=== PATIENT | male | born 1960 | race Caucasian/White ===

== ENCOUNTER 2016-07-22 19:29 | Inpatient (IN) | payer OTHER ==
[2016-07-22 19:45] VITALS: BMI 32.3
--- NOTE | 2016-07-22 21:20 | HP ---
[id number] 4d 4-Moderate,w/Arms Extend Anxiety: 4-Mod. Anxious/Guarded Agitation: 4-Moderately Restless Paroxysmal Sweats: 1-Minimal Palms Moist Orientation: 3-Disoriented Date>2 days Tacttile Disturbances: 0-None Auditory Disturbances: 0-None Visual Disturbances: 0-None Headache: 0-None Present CIWA-Ar Total Score: 17 Admission ROS BHS - HPI Chief Complaint: WITHDRAWAL SX Allergies/Adverse Reactions: Allergies Allergy/AdvReac Type Severity Reaction Status Date / Time No Known Allergies Allergy Verified 07/23/16 00:48 History of Present Illness: 56 YEARS OLD MALE WITH LONG HISTORY OF ALCOHOL DEPENDENCE, HAS DVT CHRONIC LEGS PAIN GERD AND DRY SKIN IS ADMITTED TO DETOX Exam Limitations: No Limitations - Ebola screening Have you traveled outside of the country in the last 21 days: No (N) Have you had contact with anyone from an Ebola affected area: No Have you been sick,other than usual withdrawal symptoms: No Do you have a fever: No - Review of Systems Constitutional: Chills, Changes in sleep, Weight Stable EENT: reports: Dental Problems (DENTURE) Respiratory: reports: Cough, SOB with Exertion Cardiac: reports: No Symptoms Reported GI: reports: Nausea, Poor Fluid Intake, Indigestion, Abdominal cramping : reports: No Symptoms Reported Musculoskeletal: reports: Joint Pain, Muscle Pain, Muscle Weakness (RIGHT LEG) Integumentary: reports: Change in Color (PSORIASIS) Neuro: reports: Tremors Endocrine: reports: No Symptoms Reported Hematology: reports: Blood Clots (LEGS RIGHT) Psychiatric: reports: Judgement Intact, Anxious Other Systems: Reviewed and Negative Patient History - Patient Medical History Hx Anemia: No Hx Asthma: No Hx Chronic Obstructive Pulmonary Disease (COPD): No Hx Cancer: No Hx Cardiac Disorders: No Hx Congestive Heart Failure: No Hx Hypertension: No Hx Hypercholesterolemia: No Hx Pacemaker: No HX Cerebrovascular Accident: No Hx Seizures: No Hx Dementia: No Hx Diabetes: No Hx Gastrointestinal Disorders: Yes Hx Liver Disease: No Hx Genitourinary Disorders: No Hx Sexually Transmitted Disorders: No Hx Renal Disease (ESRD): No Hx Thyroid Disease: No Hx Human Immunodeficiency Virus (HIV): No Hx Hepatitis C: No Hx Depression: No Hx Suicide Attempt: No Hx Bipolar Disorder: No Hx Schizophrenia: No - Patient Surgical History Past Surgical History: Yes Hx Neurologic Surgery: No Hx Cataract Extraction: No Hx Cardiac Surgery: No Hx Lung Surgery: No Hx Breast Surgery: No Hx Breast Biopsy: No Hx Abdominal Surgery: No Hx Appendectomy: No Hx Cholecystectomy: No Hx Genitourinary Surgery: No Hx Orthopedic Surgery: Yes (FX AGE 46) Other Surgical History: IVP FILTER / PILOCYST REMOVED 2005 Anesthesia Reaction: No - PPD History Previous Implant?: Yes Documented Results: Negative w/o proof Implanted On Prior R Admission?: No PPD to be Administered?: Yes - Smoking Cessation Smoking history: Former smoker Have you smoked in the past 12 months: No Aproximately how many cigarettes per day: 0 Cigars Per Day: 0 Hx Chewing Tobacco Use: No Initiated information on smoking cessation: No - Substance & Tx. History Hx Alcohol Use: Yes Hx Substance Use: No Substance Use Type: Alcohol Hx Substance Use Treatment: Yes - Substances Abused Alcohol Route: Oral Frequency: Daily Amount used: 3 PINTS VOLKA Age of first use: 7 Date of Last Use: 07/22/16 Family Disease History - Family Disease History Family Disease History: Heart Disease: Mother (), Other: Father (NO CONTACT ), Mother Admission Physical Exam S - Vital Signs Vital Signs: Vital Signs - 24 hr 07/22/16 19:42 Temperature 98.8 F Pulse Rate 129 H Respiratory 20 Rate Blood Pressure 144/94 - Physical General Appearance: Yes: Appropriately Dressed, Moderate Distress, Alcohol on Breath, Obese, Tremorous, Irritable, Sweating, Anxious HEENTM: Yes: Hearing grossly Normal, Normal ENT Inspection, Normocephalic, Normal Voice Respiratory: Yes: Chest Non-Tender, No Accessory Muscle Use, Crackles, Rhonchi, Wheezing Neck: Yes: Supple, Trachea in good position Breast: Yes: Breasts Symetrical Cardiology: Yes: Regular Rhythm, S1, S2, Tachycardia Abdominal: Yes: Non Tender, Soft Genitourinary: Yes: Within Normal Limits Back: Yes: Normal Inspection Musculoskeletal: Yes: full range of Motion, Gait Steady, Muscle weakness (RIGHT LEG) Extremities: Yes: Normal Range of Motion, Non-Tender, Tremors Neurological: Yes: Alert, Motor Strength 5/5, Normal Response, Depressed Affect Integumentary: Yes: Warm, Clammy Lymphatic: Yes: Within Normal Limits - Diagnostic (1) Alcohol dependence with uncomplicated withdrawal Current Visit: Yes Status: Acute (2) DVT (deep venous thrombosis) Current Visit: Yes Status: Acute Qualifiers: DVT location: lower extremity Affected thrombotic vein of extremity: popliteal Laterality: bilateral (3) GERD (gastroesophageal reflux disease) Current Visit: Yes Status: Acute Qualifiers: Esophagitis presence: without esophagitis Qualified Code(s): K21.9 - Gastro-esophageal reflux disease without esophagitis (4) Chronic pruritus Current Visit: Yes Status: Chronic Comment: claritine (5) Psoriasis Current Visit: Yes Status: Acute Comment: triamcinolone (6) Toenail fungus Current Visit: Yes Status: Acute Comment: clotrimazole (7) Hypertension Current Visit: Yes Status: Chronic Qualifiers: Hypertension type: essential hypertension Qualified Code(s): I10 - Essential (primary) hypertension Comment: clonidine prn Cleared for Admission S - Detox or Rehab [facility] Level of Care: Medically Managed Detox Regimen/Protocol: Librium S Breath Alcohol Content Breath Alcohol Content: 0.176 Urine Drug Screen - Results Drug Screen Negative: Yes
[2016-07-22] MEDS ORDERED: P-EPHED 60MG/TRIPROLIDI 2.5MG TABLET PO PRN (21:46)
[2016-07-22] MEDS ORDERED: LOPERAMIDE HCL 2 MG CAPSULE PO PRN (21:46)
[2016-07-22] MEDS ORDERED: guaiFENesin/D-METHORPHAN HB 10 ML UNIT-DOSE CUPS PO PRN (21:46)
[2016-07-22] MEDS ORDERED: MENTHOL/PHENOL 1 EACH UD MM PRN (21:46)
[2016-07-22] MEDS ORDERED: MAGNESIUM HYDROX 2400MG/30ML ORAL SUSPENSION 30 ML CUP PO PRN (21:46)
[2016-07-22] MEDS ORDERED: MAGNESIUM CITRATE 300 ML BOTTLE PO PRN (21:46)
[2016-07-22] MEDS ORDERED: diazePAM 5 MG TABLET PO ONE (21:51)
[2016-07-22] MEDS ORDERED: LORATADINE 10 MG TABLET PO SCH (22:00)
[2016-07-22] MEDS ORDERED: PANTOPRAZOLE 40 MG TABLET (FP) PO SCH (23:00)
[2016-07-23] MEDS: diazePAM 5 MG TABLET PO PRN ×5 (00:37→18:11)
[2016-07-23] MEDS: diphenhydrAMINE HCL 50 MG CAPSULE PO PRN (00:43)
[2016-07-23] MEDS: diazePAM 5 MG TABLET PO SCH ×4 (00:47→22:22)
[2016-07-23] MEDS: NAPROXEN 500 MG TABLET (FP) PO SCH ×3 (00:49→22:23)
[2016-07-23] MEDS: CLOTRIMAZOLE 1% CREAM 15 GM TUBE TP SCH ×3 (00:49→22:23)
[2016-07-23] MEDS: RIVAROXABAN 20 MG TABLET PO SCH ×2 (00:49→22:24)
[2016-07-23] MEDS: THIAMINE HCL 100 MG TABLET (FP) PO SCH ×2 (00:49→22:22)
[2016-07-23] MEDS: hydrOXYzine PAMOATE 50 MG CAPSULE (FP) PO PRN ×2 (03:09→10:17)
[2016-07-23] MEDS: MAG HYDROX/AL HYDROX/SIMETH 30 ML UNIT-DOSE CUP PO PRN ×2 (03:43→18:11)
[2016-07-23] MEDS: ACETAMINOPHEN 325 MG TABLET (FP) PO PRN (09:14)
--- NOTE | 2016-07-23 09:27 | PN ---
BHS CIWA - CIWA Score Nausea/Vomitin Muscle Tremors: 3 Anxiety: 3 Agitation: 2 Paroxysmal Sweats: 1-Minimal Palms Moist Orientation: 0-Oriented Tacttile Disturbances: 1-Very Mild Itch/Numbness Auditory Disturbances: 1-Very Mild Visual Disturbances: 2-Mild Sensitivity Headache: 2-Mild CIWA-Ar Total Score: 18 BHS Progress Note (SOAP) Subjective: ALERT,IRRITABLE,ANXIOUS,INTERRUPTED SLEEP,TREMOR,PAIN IN THE BODY Objective: 07/23/16 09:25 Vital Signs Temperature 97.5 F L 07/23/16 06:22 Pulse Rate 104 H 07/23/16 06:22 Respiratory Rate 20 07/23/16 06:22 Blood Pressure 146/91 07/23/16 06:22 O2 Sat by Pulse Oximetry (%) EKG SINUS TACHYCARDIA 114/MIN NO CHEST PAIN,NO SOB,NO DIZZINESS LABS PENDING Assessment: 07/23/16 09:26 WITHDRAWAL SYMPTOM Plan: CONTINUE DETOX
[2016-07-23] MEDS: HYDROCORTISONE 1% TOPICAL CREAM 30 GM TUBE TP SCH ×4 (10:17→22:22)
[2016-07-23] MEDS: cloNIDine HCL 0.1 MG TABLET PO PRN ×2 (10:17→22:22)
[2016-07-23] MEDS: PRENATAL VITAMINS W/ FOLIC ACID TABLET (FP) PO SCH (10:17)
[2016-07-23 11:19] LABS: MCH 33.5 pg (25.7-33.7); MCHC 34.1 g/dl (32.0-35.9); MEAN CELL VOLUME 98.1 fl (80-96); MEAN PLT VOLUME 9.1 fl (7.5-11.1); PLATELET COUNT 130 K/MM3 (134-434); RDW 14.7 % (11.9-15.9)
[2016-07-23 11:43] LABS: ALBUMIN 4.2 g/dl (3.4-5.0); ALK PHOS 102 U/L (45-117); ANION GAP 14 (8-16); CALCIUM 8.5 mg/dL (8.5-10.1); CO2 27 mmol/L (21-32); CREATININE 1.1 mg/dL (0.7-1.3); GLUCOSE,RANDOM 86 mg/dL (74-106); SGOT/AST 54 U/L (15-37); SGPT/ALT 33 U/L (12-78); TOT PROT 7.3 g/dl (6.4-8.2)
[2016-07-23 14:10] LABS: HIV 1 & 2 AB NEGATIVE; HIV 1 AGp24 NEGATIVE
--- NOTE | 2016-07-23 15:14 | CONSULT ---
[facility] Psychiatric Consult - Data Date of interview: 07/23/16 Admission source: [facility] Identifying data: First admission to [facility] for his 56 y/o male seeking detox treatment on for alcohol dependence.Patient is single without children,domiciled,unemployed and supported on Public Assistance. Substance Abuse History: - Smoking Cessation. Smoking history: Former smoker. Have you smoked in the past 12 months: Yes. Hx Chewing Tobacco Use: No. Initiated information on smoking cessation: No. - Substance & Tx. History. Hx Alcohol Use: Yes. Hx Substance Use: No. Substance Use Type: Alcohol. Hx Substance Use Treatment: Yes. - Substances Abused. Alcohol. Route: Oral. Frequency: Daily. Amount used: 3 PINTS VOLKA. Age of first use: 7. Date of Last Use: 07/22/16. Confirmed by patient in this interview. Medical History: Patient endorses good general health.History of IVP filter/ pilocyst removed in 2005,DVT and GERD. Psychiatric History: Patient denies. Physical/Sexual Abuse/Trauma History: Patient denies. Additional Comment: Drug Screen is negative. Mental Status Exam - Mental Status Exam Alert and Oriented to: Time, Place, Person Cognitive Function: Good Patient Appearance: Well Groomed Mood: Hopeful, Euthymic Affect: Appropriate, Normal Range Patient Behavior: Appropriate, Cooperative Speech Pattern: Clear, Appropriate Voice Loudness: Normal Thought Process: Goal Oriented Thought Disorder: Not Present Hallucinations: Denies Suicidal Ideation: Denies Insight/Judgement: Fair Sleep: Poorly, Difficulty falling asleep Appetite: Good Muscle strength/Tone: Normal Psychiatric Findings - Problem List ([place] 1, 2,3) (1) Alcohol dependence Current Visit: Yes Status: Acute (2) Insomnia Current Visit: Yes Status: Acute - Initial Treatment Plan Initial Treatment Plan: Psychoeducation.Detoxification.Seroquel 50 mg po hs ( patient's request).Made aware of the side effects/benefits of the drug.Observation.
[2016-07-23 17:44] LABS: URINE APPEARANCE CLEAR; URINE BLOOD NEGATIVE (NEGATIVE); URINE COLOR AMBER; URINE GLUCOSE (UA) NEGATIVE (NEGATIVE); URINE KETONE TRACE (NEGATIVE); URINE NITRITE NEGATIVE (NEGATIVE); URINE UROBILINOGEN NEGATIVE E.U./dl (0.2-1.0)
[2016-07-23 17:50] LABS: URINE LEUK ESTERASE 1+ (NEGATIVE); URINE PROTEIN 2+ (NEGATIVE)
[2016-07-23 18:09] LABS: URINE HYALINE CAST 9 /lpf; URINE MUCUS FEW; URINE RBC 4 /hpf (0-3); URINE WBC 9 /hpf (3-5)
[2016-07-23] MEDS: LORATADINE 10 MG TABLET PO SCH (22:22)
[2016-07-23] MEDS: QUEtiapine FUMARATE 50 MG TABLET PO SCH (22:22)
[2016-07-23] MEDS: OMEPRAZOLE PO SCH (22:23)
[2016-07-23] MEDS: XERALTO PO SCH (22:25)
[2016-07-24] MEDS: PRENATAL VITAMINS W/ FOLIC ACID TABLET (FP) PO SCH (10:41)
[2016-07-24] MEDS: NAPROXEN 500 MG TABLET (FP) PO SCH ×2 (10:42→17:50)
[2016-07-24] MEDS: HYDROCORTISONE 1% TOPICAL CREAM 30 GM TUBE TP SCH ×4 (10:42→22:55)
[2016-07-24] MEDS: diazePAM 5 MG TABLET PO SCH ×2 (10:42→22:21)
[2016-07-24] MEDS: CLOTRIMAZOLE 1% CREAM 15 GM TUBE TP SCH ×2 (10:43→22:55)
[2016-07-24] MEDS: cloNIDine HCL 0.1 MG TABLET PO PRN (10:44)
[2016-07-24] MEDS: hydrOXYzine PAMOATE 50 MG CAPSULE (FP) PO PRN ×2 (10:44→15:08)
--- NOTE | 2016-07-24 10:45 | PN ---
[facility] CIWA - CIWA Score Nausea/Vomitin Muscle Tremors: 3 Anxiety: 3 Agitation: 2 Paroxysmal Sweats: 1-Minimal Palms Moist Orientation: 0-Oriented Tacttile Disturbances: 1-Very Mild Itch/Numbness Auditory Disturbances: 1-Very Mild Visual Disturbances: 1-Very Mild Sensitivity Headache: 2-Mild CIWA-Ar Total Score: 17 BHS Progress Note (SOAP) Subjective: ALERT,IRRITABLE,ANXIOUS,INTERRUPTED SLEEP,TREMOR Objective: 07/24/16 10:43 Vital Signs Temperature 97.8 F 07/24/16 09:46 Pulse Rate 119 H 07/24/16 09:46 Respiratory Rate 18 07/24/16 09:46 Blood Pressure 142/88 07/24/16 09:46 O2 Sat by Pulse Oximetry (%) Laboratory Last Values WBC 4.0 K/mm3 (4.0-10.0) 07/23/16 08:00 RBC 3.95 M/mm3 (4.00-5.60) L 07/23/16 08:00 Hgb 13.2 GM/dL (11.7-16.9) 07/23/16 08:00 Hct 38.8 % (35.4-49) 07/23/16 08:00 MCV 98.1 fl (80-96) H 07/23/16 08:00 MCHC 34.1 g/dl (32.0-35.9) 07/23/16 08:00 RDW 14.7 % (11.9-15.9) 07/23/16 08:00 Plt Count 130 K/MM3 (134-434) L 07/23/16 08:00 MPV 9.1 fl (7.5-11.1) 07/23/16 08:00 Sodium 143 mmol/L (136-145) 07/23/16 08:00 Potassium 3.7 mmol/L (3.5-5.1) 07/23/16 08:00 Chloride 102 mmol/L (98-107) 07/23/16 08:00 Carbon Dioxide 27 mmol/L (21-32) 07/23/16 08:00 Anion Gap 14 (8-16) 07/23/16 08:00 BUN 17 mg/dL (7-18) 07/23/16 08:00 Creatinine 1.1 mg/dL (0.7-1.3) 07/23/16 08:00 Creat Clearance w eGFR > 60 (>60) 07/23/16 08:00 Random Glucose 86 mg/dL (74-106) 07/23/16 08:00 Calcium 8.5 mg/dL (8.5-10.1) 07/23/16 08:00 Total Bilirubin 1.0 mg/dL (0.2-1.0) 07/23/16 08:00 AST 54 U/L (15-37) H 07/23/16 08:00 ALT 33 U/L (12-78) 07/23/16 08:00 Alkaline Phosphatase 102 U/L (45-117) 07/23/16 08:00 Total Protein 7.3 g/dl (6.4-8.2) 07/23/16 08:00 Albumin 4.2 g/dl (3.4-5.0) 07/23/16 08:00 Urine Color Kayla 07/23/16 Unknown Urine Appearance Clear 07/23/16 Unknown Urine pH 5.0 (5.0-8.0) 07/23/16 Unknown Ur Specific [place] 1.034 (1.001-1.035) 07/23/16 Unknown Urine Protein 2+ (NEGATIVE) H 07/23/16 Unknown Urine Glucose (UA) Negative (NEGATIVE) 07/23/16 Unknown Urine Ketones Trace (NEGATIVE) H 07/23/16 Unknown Urine Blood Negative (NEGATIVE) 07/23/16 Unknown Urine Nitrite Negative (NEGATIVE) 07/23/16 Unknown Urine Bilirubin 2.0 (NEGATIVE) 07/23/16 Unknown Urine Urobilinogen Negative E.U./dl (0.2-1.0) 07/23/16 Unknown Ur Leukocyte Esterase 1+ (NEGATIVE) H 07/23/16 Unknown Urine RBC 4 /hpf (0-3) 07/23/16 Unknown Urine WBC 9 /hpf (3-5) 07/23/16 Unknown Ur Epithelial Cells Rare /hpf (FEW) 07/23/16 Unknown Hyaline Casts 9 /lpf 07/23/16 Unknown Urine Mucus Few 07/23/16 Unknown RPR Titer Nonreactive (NONREACTIVE) 07/23/16 08:00 HIV 1&2 Antibody Screen Negative 07/23/16 08:00 HIV P24 Antigen Negative 07/23/16 08:00 07/24/16 10:44 Assessment: 07/24/16 10:44 WITHDRAWAL SYMPTOM Plan: CONTINUE DETOX
[2016-07-24] MEDS: ACETAMINOPHEN 325 MG TABLET (FP) PO PRN (13:49)
[2016-07-24] MEDS: diazePAM 5 MG TABLET PO PRN ×2 (13:52→17:52)
[2016-07-24] MEDS ORDERED: CYCLOBENZAPRINE HCL 10 MG TABLET (FP) PO ONE (14:38)
[2016-07-24] MEDS ORDERED: CYCLOBENZAPRINE HCL 10 MG TABLET (FP) PO PRN (14:38)
[2016-07-24] MEDS ORDERED: NAPROXEN 500 MG TABLET (FP) PO SCH (18:00)
[2016-07-24] MEDS: OMEPRAZOLE PO SCH (22:19)
[2016-07-24] MEDS: XERALTO PO SCH (22:20)
[2016-07-24] MEDS: LORATADINE 10 MG TABLET PO SCH (22:20)
[2016-07-24] MEDS: THIAMINE HCL 100 MG TABLET (FP) PO SCH (22:21)
[2016-07-24] MEDS: QUEtiapine FUMARATE 50 MG TABLET PO SCH (22:21)
--- NOTE | 2016-07-24 22:42 | EKG ---
Test Reason : Blood Pressure : / mmHG Vent. Rate : 114 BPM Atrial Rate : 114 BPM P-R Int : 160 ms QRS Dur : 078 ms QT Int : 330 ms P-R-T Axes : 084 -08 032 degrees QTc Int : 454 ms POOR DATA QUALITY, INTERPRETATION MAY BE ADVERSELY AFFECTED LIKELY SINUS TACHYCARDIA NONSPECIFIC T WAVE ABNORMALITY NO PREVIOUS ECGS AVAILABLE Confirmed by MEHRDAD COLÓN MD ([id number]) on 07/24/2016 10:41:38 PM Referred By: Confirmed By:MEHRDAD COLÓN MD
[2016-07-24] MEDS: RIVAROXABAN 20 MG TABLET PO SCH (22:55)
[2016-07-25] MEDS: diphenhydrAMINE HCL 50 MG CAPSULE PO PRN ×2 (01:25→23:14)
[2016-07-25] MEDS: NAPROXEN 500 MG TABLET (FP) PO SCH (10:00)
--- NOTE | 2016-07-25 10:24 | PN ---
BHS Progress Note (SOAP) Subjective: body aches shakes Objective: 07/25/16 10:22 Vital Signs Temperature 97.5 F L 07/25/16 10:10 Pulse Rate 102 H 07/25/16 10:10 Respiratory Rate 18 07/25/16 10:10 Blood Pressure 142/99 07/25/16 10:10 O2 Sat by Pulse Oximetry (%) awake/alert ambulating no acute distress Assessment: 07/25/16 10:23 withdrawal sx Plan: continue detox increase fluids clonidine 0.1mg bid d/c in am
[2016-07-25] MEDS: PRENATAL VITAMINS W/ FOLIC ACID TABLET (FP) PO SCH (10:28)
[2016-07-25] MEDS: diazePAM 5 MG TABLET PO SCH ×2 (10:29→23:01)
[2016-07-25] MEDS: HYDROCORTISONE 1% TOPICAL CREAM 30 GM TUBE TP SCH ×5 (10:29→23:06)
[2016-07-25] MEDS: CLOTRIMAZOLE 1% CREAM 15 GM TUBE TP SCH ×3 (10:30→23:06)
[2016-07-25] MEDS: cloNIDine HCL 0.1 MG TABLET PO SCH ×2 (10:48→22:56)
[2016-07-25] MEDS: IBUPROFEN 400 MG TABLET (FP) PO PRN ×2 (11:22→19:34)
[2016-07-25] MEDS: diazePAM 5 MG TABLET PO PRN ×2 (14:27→19:32)
[2016-07-25] MEDS: hydrOXYzine PAMOATE 50 MG CAPSULE (FP) PO PRN (15:38)
[2016-07-25] MEDS ORDERED: XERALTO PO SCH (17:00)
[2016-07-25] MEDS: THIAMINE HCL 100 MG TABLET (FP) PO SCH (22:56)
[2016-07-25] MEDS: LORATADINE 10 MG TABLET PO SCH (22:56)
[2016-07-25] MEDS: QUEtiapine FUMARATE 50 MG TABLET PO SCH (22:56)
[2016-07-25] MEDS: OMEPRAZOLE PO SCH (22:59)
[2016-07-26] MEDS: hydrOXYzine PAMOATE 50 MG CAPSULE (FP) PO PRN (06:11)
[2016-07-26] MEDS: IBUPROFEN 400 MG TABLET (FP) PO PRN (06:12)
--- NOTE | 2016-07-26 08:40 | DS ---
[facility] Detox Discharge Summary Admission Date: 07/22/16 Discharge Date: 07/26/16 - History Present History: Alcohol Dependence - Physical Exam Results Vital Signs: Vital Signs Temperature 98.4 F 07/26/16 06:40 Pulse Rate 88 07/26/16 06:40 Respiratory Rate 18 07/26/16 06:40 Blood Pressure 141/84 07/26/16 06:40 O2 Sat by Pulse Oximetry (%) - Treatment Hospital Course: Detox Protocol Followed, Detoxed Safely, Responded well, Discharged Condition Good, Rehab Referral Accepted - Medication Discharge Medications: Ambulatory Orders Loratadine [Claritin -] 10 mg PO HS 07/22/16 Naproxen [Naprosyn -] 500 mg PO BID 07/22/16 Omeprazole 40 mg PO HS 07/22/16 Rivaroxaban [Xarelto -] 20 mg PO HS 07/22/16 Quetiapine Fumarate [Seroquel -] 50 mg PO HS #30 tablet 07/23/16 - Diagnosis (1) Alcohol dependence with uncomplicated withdrawal Current Visit: Yes Status: Chronic (2) DVT (deep venous thrombosis) Current Visit: Yes Status: Chronic Qualifiers: DVT location: lower extremity Affected thrombotic vein of extremity: popliteal Laterality: bilateral (3) GERD (gastroesophageal reflux disease) Current Visit: Yes Status: Chronic Qualifiers: Esophagitis presence: without esophagitis Qualified Code(s): K21.9 - Gastro-esophageal reflux disease without esophagitis (4) Insomnia Current Visit: Yes Status: Acute (5) Psoriasis Current Visit: Yes Status: Acute (6) Toenail fungus Current Visit: Yes Status: Acute (7) Chronic pruritus Current Visit: Yes Status: Chronic (8) Hypertension Current Visit: Yes Status: Chronic Qualifiers: Hypertension type: essential hypertension Qualified Code(s): I10 - Essential (primary) hypertension - AMA Did Patient Leave Against Medical Advice: No
[2016-07-26] MEDS: cloNIDine HCL 0.1 MG TABLET PO SCH (09:41)
[2016-07-26] MEDS: PRENATAL VITAMINS W/ FOLIC ACID TABLET (FP) PO SCH (09:41)
[2016-07-26] MEDS: CLOTRIMAZOLE 1% CREAM 15 GM TUBE TP SCH (09:42)
[2016-07-26] MEDS: HYDROCORTISONE 1% TOPICAL CREAM 30 GM TUBE TP SCH (09:42)
[2016-07-26 09:56] VITALS: BP 143/92; PULSE 111; TEMP 97.2
[2016-07-26] MEDS ORDERED: diazePAM 5 MG TABLET PO SCH (10:00)
== END 2016-07-26 09:50 | disposition home or self-care (01) | DRG 775 ==
LOC: YASAS 19:29 → Y6N 22:59
PROVIDERS: ADMIT Internal Medicine; ATTEND Internal Medicine
PROC: HZ2ZZZZ Detoxification Services for Substance Abuse Treatment (ICD-10-PCS; principal; 2016-07-26)
DX: F10.230 Alcohol dependence with withdrawal, uncomplicated (principal); G47.00 Insomnia, unspecified; I10 Essential (primary) hypertension; I82.433 Acute embolism and thrombosis of popliteal vein, bilateral; Z79.01 Long term (current) use of anticoagulants; B35.1 Tinea unguium; K21.9 Gastro-esophageal reflux disease without esophagitis; L40.9 Psoriasis, unspecified
CPT/HCPCS: 36415; 71020-TC; 80053; 81003; 81015; 85027; 86593; 87389; 93005; 93010

== ENCOUNTER 2018-12-15 08:34 | Inpatient (IN) | payer OTHER ==
[2018-12-15 09:18] VITALS: BMI 24.5
--- NOTE | 2018-12-15 09:49 | HP ---
"CIWA Score Nausea/Vomitin Muscle Tremors: 4-Moderate,w/Arms Extend Anxiety: 4-Mod. Anxious/Guarded Agitation: 1-Slight > Activity Paroxysmal Sweats: 1-Minimal Palms Moist Orientation: 0-Oriented Tacttile Disturbances: 0-None Auditory Disturbances: 0-None Visual Disturbances: 0-None Headache: 1-Very Mild CIWA-Ar Total Score: 14 - Admission Criteria [facility] Guidelines: Admission for Medically Managed Detox: Requires at least one of the followin. CIWA greater than 12 2. Seizures within the past 24 hours 3. Delirium tremens within the past 24 hours 4. Hallucinations within the past 24 hours 5. Acute intervention needed for co occurring medical disorder 6. Acute intervention needed for co occurring psychiatric disorder 7. Severe withdrawal that cannot be handled at a lower level of care (continued vomiting, continued diarrhea, abnormal vital signs) requiring intravenous medication and/or fluids 8. Patient presents the following: CIWA greater than 12 Admission Criteria Met: Admission criteria met Admission ROS S - [facility] Chief Complaint: I was doing good but then I met the wrong person and started drinking again - I can't stop - I don't want to lose my apartment. Allergies/Adverse Reactions: Allergies Allergy/AdvReac Type Severity Reaction Status Date / Time No Known Allergies Allergy Verified 12/15/18 09:09 History of Present Illness: 58 yo gentleman here for detox from alcohol, also uses heroin though none x 3 days, urine tox negative for opiates - he is aware we will detox him only for alcohol. He is also on pain management but missed his appointment on 12/12/18 - states he supplements the percocet with heroin for his chronic pain. He states he needs a hip replacement. Patient came from [place] [facility] - he went there for chest pressure which they said was negative for [place] and recommended detox. Patient lives in his own apartment, on disability. Denies any seizures or overdose but does have black outs. Last time here for detox was in 2017 and states he did well until a few months ago when he relapsed. [facility] Search Terms: jeremy hennessy, 1960 Search Date: 12/15/2018 09:53:31 AM The Drug Utilization Report below displays all of the controlled substance prescriptions, if any, that your patient has filled in the last twelve months. The information displayed on this report is compiled from pharmacy submissions to the Department, and accurately reflects the information as submitted by the pharmacies. This report was requested by: Nikole Montemayor | Reference #: [id number] Others' Prescriptions Patient Name: Jeremy Hennessy Date: 1960 Address: [address] [place] [address] Sex: Male Rx Written Rx Dispensed Drug Quantity Days Supply Prescriber Name 11/12/2018 11/12/2018 oxycodone-acetaminophen 5-325 mg tab 60 30 Tuluca, Trey 10/12/2018 10/12/2018 endocet 5-325 tablet 60 30 Tuluca, Trey 09/11/2018 09/11/2018 endocet 5-325 tablet 60 30 Tuluca, Trey 08/06/2018 08/06/2018 endocet 5-325 tablet 60 30 Tuluca, Trey 05/24/2018 07/09/2018 tramadol hcl 50 mg tablet 90 30 Tuluca, Trey 07/06/2018 07/09/2018 endocet 5-325 tablet 60 30 Tuluca, Trey 06/01/2018 06/09/2018 endocet 5-325 tablet 60 30 Tuluca, Trey 06/01/2018 06/01/2018 endocet 5-325 tablet 14 7 Tuluca, Trey 05/24/2018 05/25/2018 tramadol hcl 50 mg tablet 21 7 Wayne Vuongiano Patient Name: Jeremy Hennessy Date: 1960 Address: [address] [place] [id number] Sex: Female Rx Written Rx Dispensed Drug Quantity Days Supply Prescriber Name 12/27/2017 12/27/2017 tramadol hcl 50 mg tablet 90 30 Wayne Vuongiano Exam Limitations: No Limitations - Ebola screening Have you traveled outside of the country in the last 21 days: No Have you had contact with anyone from an Ebola affected area: No - Review of Systems Constitutional: Loss of Appetite, Malaise, Changes in sleep, Weakness EENT: reports: Blurred Vision Respiratory: reports: No Symptoms reported Cardiac: reports: No Symptoms Reported GI: reports: Nausea, Poor Appetite, Indigestion, Abdominal cramping : reports: Frequency Musculoskeletal: reports: Back Pain, Joint Pain, Muscle Pain Integumentary: reports: Dryness Neuro: reports: Headache, Tremors, Weakness Endocrine: reports: No Symptoms Reported Hematology: reports: No Symptoms Reported Psychiatric: reports: Judgement Intact, Mood/Affect Appropiate, Orientated x3, Anxious Other Systems: Reviewed and Negative Patient History - Patient Medical History Hx Anemia: No Hx Asthma: No Hx Chronic Obstructive Pulmonary Disease (COPD): No Hx Cancer: No Hx Cardiac Disorders: No Hx Congestive Heart Failure: No Hx Hypertension: Yes Hx Hypercholesterolemia: No Hx Pacemaker: No HX Cerebrovascular Accident: No Hx Seizures: No Hx Dementia: No Hx Diabetes: No Hx Gastrointestinal Disorders: Yes (GERD) Hx Liver Disease: No Hx Genitourinary Disorders: No Hx Sexually Transmitted Disorders: No Hx Renal Disease (ESRD): Yes (mild renal insuffficiency) Hx Thyroid Disease: No Hx Human Immunodeficiency Virus (HIV): No Hx Hepatitis C: No Hx Depression: No Hx Suicide Attempt: No (denies) Hx Bipolar Disorder: No Hx Schizophrenia: No Other Medical History: back and hip pain - osteoarthritis - Patient Surgical History Past Surgical History: Yes Hx Neurologic Surgery: No Hx Cataract Extraction: No Hx Cardiac Surgery: No Hx Lung Surgery: No Hx Breast Surgery: No Hx Breast Biopsy: No Hx Abdominal Surgery: No Hx Appendectomy: No Hx Cholecystectomy: No Hx Genitourinary Surgery: No Hx Orthopedic Surgery: Yes (shoulder rotator cuff repair AGE 46) Other Surgical History: IVP FILTER / PILOCYST REMOVED 2005 Anesthesia Reaction: No - PPD History Previous Implant?: Yes Documented Results: Negative w/o proof Implanted On Prior [facility] Admission?: Yes Date: 07/24/16 PPD to be Administered?: No - Reproductive History Patient is a Female of Child Bearing Age (11 -55 yrs old): No - Smoking Cessation Smoking history: Former smoker Have you smoked in the past 12 months: No Aproximately how many cigarettes per day: 0 Cigars Per Day: 0 Hx Chewing Tobacco Use: No Initiated information on smoking cessation: No - Substance & Tx. History Hx Alcohol Use: Yes Substance Use Type: Alcohol, Heroin Hx Substance Use Treatment: Yes (detox, rehab) - Substances abused Alcohol Substance route: Oral Frequency: Daily Amount used: 6 PINTS OF VODKA Age of first use: 16 Date of last use: 12/14/18 Heroin Substance route: Inhalation Frequency: 3-6 times per week Amount used: 2 BAGS (it's off an on, not everyday) Age of first use: 16 (2-3 times per week) Date of last use: 12/12/18 (urine tox negative for opiates) Family Disease History - Family Disease History Family Disease History: Heart Disease: Mother (), Other: Father (NO CONTACT ), Mother Admission Physical Exam [facility] - Vital Signs Vital Signs: Vital Signs - 24 hr 12/15/18 09:02 Temperature 97.6 F Pulse Rate 92 H Respiratory 18 Rate Blood Pressure 155/104 H - Physical General Appearance: Yes: Nourished, Appropriately Dressed, Moderate Distress, Tremorous, Anxious HEENTM: Yes: Hearing grossly Normal, Normal ENT Inspection, Normocephalic, Normal Voice Respiratory: Yes: Normal Breath Sounds, No Respiratory Distress Neck: Yes: Within Normal Limits Breast: Yes: Breast Exam Deferred Cardiology: Yes: Regular Rhythm, Regular Rate Abdominal: Yes: Flat, Soft Genitourinary: Yes: Frequency Back: Yes: Decreased Range of Motion, Other (mild kyphosis) Musculoskeletal: Yes: Back pain, Joint Stiffness, Muscle Pain, Other (uses cane to ambulate) Extremities: Yes: Tremors Neurological: Yes: Fully Oriented, Alert, Normal Mood/Affect, Normal Response Integumentary: Yes: Normal Color, Dry, Warm Lymphatic: Yes: Within Normal Limits - Diagnostic (1) Alcohol dependence with uncomplicated withdrawal Current Visit: Yes Status: Chronic (2) Opiate abuse, episodic Current Visit: Yes Status: Suspected (3) Hypertension Current Visit: Yes Status: Chronic Qualifiers: Hypertension type: essential hypertension Qualified Code(s): I10 - Essential (primary) hypertension (4) GERD (gastroesophageal reflux disease) Current Visit: Yes Status: Chronic Qualifiers: Esophagitis presence: without esophagitis Qualified Code(s): K21.9 - Gastro -esophageal reflux disease without esophagitis (5) Thrombocytopenia Current Visit: Yes Status: Chronic (6) Hip pain, chronic Current Visit: Yes Status: Chronic Qualifiers: Laterality: bilateral Qualified Code(s): M25.551 - Pain in right hip; M25.552 - Pain in left hip; G89.29 - Other chronic pain (7) Chronic back pain Current Visit: Yes Status: Chronic Qualifiers: Back pain location: low back pain Back pain laterality: bilateral Sciatica presence: without sciatica Qualified Code(s): M54.5 - Low back pain; G89.29 - Other chronic pain Comment: needs cane (8) History of DVT (deep vein thrombosis) Current Visit: Yes Status: Chronic Cleared for Admission S - Detox or Rehab [facility] Level of Care: Medically Managed Detox Regimen/Protocol: Librium Breathalyzer - Breathalyzer Breathalyzer: 0 Urine Drug Screen - Test Device Lot number: [id number] Expiration date: 09/19/19 - Control Is test valid?: Yes - Results Drug screen NEGATIVE: Yes Inpatient Rehab Admission - Rehab Decision to Admit Inpatient rehab admission?: No"
[2018-12-15] MEDS ORDERED: ONDANSETRON *ODT* 4 MG TABLET SL PRN (10:11)
[2018-12-15] MEDS ORDERED: MAGNESIUM HYDROX 2400MG/30ML ORAL SUSPENSION 30 ML CUP PO PRN (10:11)
[2018-12-15] MEDS ORDERED: chlordiazePOXIDE HCL 25 MG CAPSULE PO ONE (10:11)
[2018-12-15] MEDS ORDERED: MAG HYDROX/AL HYDROX/SIMETH 30 ML UNIT-DOSE CUP PO PRN (10:11)
[2018-12-15] MEDS ORDERED: MAGNESIUM CITRATE 300 ML BOTTLE PO PRN (10:11)
[2018-12-15] MEDS: LIDOCAINE 5% TOPICAL PATCH TP SCH (11:48)
[2018-12-15] MEDS: chlordiazePOXIDE HCL 25 MG CAPSULE PO SCH ×3 (11:48→22:27)
[2018-12-15] MEDS: APIXABAN 2.5 MG TABLET PO SCH ×2 (12:00→22:27)
[2018-12-15] MEDS: PANTOPRAZOLE 40 MG TABLET (FP) PO SCH (12:03)
[2018-12-15] MEDS: NIFEdipine E.R. 30 MG TABLET (FP) PO SCH (12:03)
[2018-12-15] MEDS: METHOCARBAMOL 500 MG TABLET PO PRN (13:07)
[2018-12-15] MEDS: BISMUTH SUBSALICYLATE 524 MG/30 ML UD PO PRN (14:41)
[2018-12-15] MEDS: ACETAMINOPHEN 325 MG TABLET (FP) PO PRN (17:46)
[2018-12-15 17:52] LABS: EPI CELLS 3.2 /HPF (0-5/HPF); HYALINE CASTS 1 /lpf (0-8); PH,URINE 5.5 (5.0-8.0); URINE APPEARANCE TURBID; URINE BACTERIA 192.7 /hpf (NEGATIVE); URINE BILIRUBIN 1+ (NEGATIVE); URINE COLOR DK YELLOW; URINE GLUCOSE (UA) NEGATIVE (NEGATIVE); URINE KETONE TRACE (NEGATIVE); URINE LEUK ESTERASE NEGATIVE (NEGATIVE); URINE NITRITE NEGATIVE (NEGATIVE); URINE PROTEIN 1+ (NEGATIVE); URINE RBC 2 /hpf (0-4); URINE WBC 5 /hpf (0-5)
[2018-12-15] MEDS: hydrOXYzine PAMOATE 25 MG CAPSULE (FP) PO PRN (20:02)
[2018-12-15] MEDS ORDERED: QUEtiapine FUMARATE 50 MG TABLET PO PRN (22:00)
[2018-12-15] MEDS: MELATONIN 5 MG TABLETS PO PRN (22:27)
[2018-12-15] MEDS: THIAMINE HCL 100 MG TABLET (FP) PO SCH (22:27)
[2018-12-15] MEDS: LIDOCAINE PATCH REMOVAL MC SCH (22:27)
[2018-12-16] MEDS: chlordiazePOXIDE HCL 25 MG CAPSULE PO SCH ×4 (06:22→22:38)
[2018-12-16] MEDS: ACETAMINOPHEN 325 MG TABLET (FP) PO PRN ×2 (06:23→17:20)
[2018-12-16 09:39] LABS: ALBUMIN 3.1 g/dl (3.4-5.0); BILIRUBIN,TOTAL 0.9 mg/dL (0.2-1); BLOOD UREA NITROGEN 15.5 mg/dL (7-18); CALCIUM 8.8 mg/dL (8.5-10.1); CREATININE 1.4 mg/dL (0.55-1.3); POTASSIUM 3.7 mmol/L (3.5-5.1); TOT PROT 6.4 g/dl (6.4-8.2)
[2018-12-16 09:52] LABS: HEMATOCRIT 36.5 % (35.4-49); HEMOGLOBIN 12.5 GM/dL (11.7-16.9); MCH 34.6 pg (25.7-33.7); MCHC 34.3 g/dl (32.0-35.9); MEAN CELL VOLUME 100.8 fl (80-96); MEAN PLT VOLUME 9.7 fl (7.5-11.1); PLATELET COUNT 94 K/MM3 (134-434); RBC 3.63 M/mm3 (4.00-5.60); WHITE BLOOD COUNT 2.4 K/mm3 (4.0-10.0)
[2018-12-16] MEDS: BISMUTH SUBSALICYLATE 524 MG/30 ML UD PO PRN (10:05)
[2018-12-16] MEDS: NIFEdipine E.R. 30 MG TABLET (FP) PO SCH (10:27)
[2018-12-16] MEDS: LIDOCAINE 5% TOPICAL PATCH TP SCH (10:27)
[2018-12-16] MEDS: APIXABAN 2.5 MG TABLET PO SCH ×2 (10:27→22:37)
[2018-12-16] MEDS: PANTOPRAZOLE 40 MG TABLET (FP) PO SCH (10:27)
[2018-12-16] MEDS: PRENATAL VITAMINS W/ FOLIC ACID TABLET (FP) PO SCH (10:28)
[2018-12-16] MEDS: chlordiazePOXIDE HCL 25 MG CAPSULE PO PRN (12:46)
[2018-12-16] MEDS: hydrOXYzine PAMOATE 25 MG CAPSULE (FP) PO PRN (14:24)
--- NOTE | 2018-12-16 14:45 | PN ---
[facility] CIWA - CIWA Score Nausea/Vomitin-Mild Nausea/No Vomiting Muscle Tremors: 3 Anxiety: 3 Agitation: 3 Paroxysmal Sweats: 3 Orientation: 0-Oriented Tacttile Disturbances: 0-None Auditory Disturbances: 0-None Visual Disturbances: 0-None Headache: 0-None Present CIWA-Ar Total Score: 13 S Progress Note (SOAP) Subjective: Tremor, sweating, chills, nausea, diarrhea, feels weak Objective: 12/16/18 14:41 Last Vital Signs Temp Pulse Resp BP Pulse Ox 97.7 F 99 H 18 118/79 12/16/18 13:35 12/16/18 13:35 12/16/18 13:35 12/16/18 13:35 Laboratory Tests 12/15/18 12/16/18 12/16/18 14:50 08:00 08:00 WBC 2.4 L RBC 3.63 L Hgb 12.5 Hct 36.5 MCV 100.8 H MCH 34.6 H MCHC 34.3 RDW 18.0 H Plt Count 94 L D MPV 9.7 Platelet Comment No clumping noted Sodium 143 Potassium 3.7 Chloride 106 Carbon Dioxide 30 Anion Gap 6 L BUN 15.5 Creatinine 1.4 H Est GFR (CKD-EPI)AfAm 62.84 Est GFR (CKD-EPI)NonAf 54.22 Random Glucose 114 H Calcium 8.8 Total Bilirubin 0.9 AST 34 ALT 40 Alkaline Phosphatase 142 H Total Protein 6.4 Albumin 3.1 L Urine Color Dk yellow Urine Appearance Turbid Urine pH 5.5 Ur Specific [place] 1.027 Urine Protein 1+ H Urine Glucose (UA) Negative Urine Ketones Trace H Urine Blood Negative Urine Nitrite Negative Urine Bilirubin 1+ H Urine Urobilinogen 1.0 Ur Leukocyte Esterase Negative Urine WBC (Auto) 5 Urine RBC (Auto) 2 Urine Casts (Auto) 1 U Epithel Cells (Auto) 3.2 Urine Bacteria (Auto) 192.7 RPR Titer 12/16/18 08:00 WBC RBC Hgb Hct MCV MCH MCHC RDW Plt Count MPV Platelet Comment Sodium Potassium Chloride Carbon Dioxide Anion Gap BUN Creatinine Est GFR (CKD-EPI)AfAm Est GFR (CKD-EPI)NonAf Random Glucose Calcium Total Bilirubin AST ALT Alkaline Phosphatase Total Protein Albumin Urine Color Urine Appearance Urine pH Ur Specific [place] Urine Protein Urine Glucose (UA) Urine Ketones Urine Blood Urine Nitrite Urine Bilirubin Urine Urobilinogen Ur Leukocyte Esterase Urine WBC (Auto) Urine RBC (Auto) Urine Casts (Auto) U Epithel Cells (Auto) Urine Bacteria (Auto) RPR Titer Nonreactive Labs reviewed: wbc 2.4, plt 94, creat 1.4, abnl UA Assessment: 12/16/18 14:44 Withdrawal sxs Noted with leukopenia, thrombocytopenia, prerenal azotemia and abnormal UA Plan: Continue detox Leukopenia: encourage good hand washing with soap and water before meals and after using bathroom Thrombocytopenia: most likely r/t alcoholism Prerenal azotemia; mild renal insufficiency as per chart: encourage PO water hydration, repeat BMP Abnormal UA: repeat UA
[2018-12-16] MEDS: MENTHOL/PHENOL 1 EACH UD MM PRN ×2 (17:21→22:38)
--- NOTE | 2018-12-16 21:02 | EKG ---
Test Reason : Blood Pressure : / mmHG Vent. Rate : 080 BPM Atrial Rate : 080 BPM P-R Int : 164 ms QRS Dur : 088 ms QT Int : 376 ms P-R-T Axes : 048 -03 033 degrees QTc Int : 433 ms NORMAL SINUS RHYTHM NORMAL ECG WHEN COMPARED WITH ECG OF 23-JUL-2016 00:49, NO SIGNIFICANT CHANGE WAS FOUND Confirmed by OK CURTIS MD ([id number]) on 12/16/2018 9:01:28 PM Referred By: Confirmed By:OK CURTIS MD
[2018-12-16] MEDS: THIAMINE HCL 100 MG TABLET (FP) PO SCH (22:37)
[2018-12-16] MEDS: LIDOCAINE PATCH REMOVAL MC SCH (22:38)
[2018-12-16] MEDS: METHOCARBAMOL 500 MG TABLET PO PRN (22:39)
[2018-12-16] MEDS: MELATONIN 5 MG TABLETS PO PRN (22:45)
[2018-12-17] MEDS: chlordiazePOXIDE HCL 25 MG CAPSULE PO PRN (05:35)
[2018-12-17] MEDS: ACETAMINOPHEN 325 MG TABLET (FP) PO PRN ×2 (05:36→16:26)
[2018-12-17] MEDS: chlordiazePOXIDE HCL 25 MG CAPSULE PO SCH ×4 (06:26→22:38)
[2018-12-17] MEDS: LIDOCAINE 5% TOPICAL PATCH TP SCH (10:48)
[2018-12-17] MEDS: PANTOPRAZOLE 40 MG TABLET (FP) PO SCH (10:49)
[2018-12-17] MEDS: PRENATAL VITAMINS W/ FOLIC ACID TABLET (FP) PO SCH (10:49)
[2018-12-17] MEDS: APIXABAN 2.5 MG TABLET PO SCH ×2 (10:49→22:37)
[2018-12-17] MEDS: NIFEdipine E.R. 30 MG TABLET (FP) PO SCH (10:49)
[2018-12-17 13:48] LABS: URINE APPEARANCE CLEAR; URINE BILIRUBIN NEGATIVE (NEGATIVE); URINE COLOR YELLOW; URINE GLUCOSE (UA) NEGATIVE (NEGATIVE); URINE KETONE NEGATIVE (NEGATIVE); URINE LEUK ESTERASE NEGATIVE (NEGATIVE); URINE NITRITE NEGATIVE (NEGATIVE); URINE PROTEIN NEGATIVE (NEGATIVE); URINE UROBILINOGEN 0.2 mg/dL (0.2-1.0)
--- NOTE | 2018-12-17 14:05 | PN ---
S CIWA - CIWA Score Nausea/Vomitin Muscle Tremors: 3 Anxiety: 3 Agitation: 2 Paroxysmal Sweats: No Perspiration Orientation: 2-Disoriented Date<2 days Tacttile Disturbances: 1-Very Mild Itch/Numbness Auditory Disturbances: 0-None Visual Disturbances: 1-Very Mild Sensitivity Headache: 0-None Present CIWA-Ar Total Score: 15 [facility] Progress Note (SOAP) Subjective: Tremors, Nausea, Anxious, Stomach Cramping, Diarrhea. Objective: PATIENT A & O X 2 (UNCERTAIN ABOUT CURRENT DAY / DATE). PATIENT OBSERVED AMBULATING ON UNIT UNASSISTED. IN NO ACUTE DISTRESS. 12/17/18 14:01 Vital Signs Temperature 98.4 F 12/17/18 13:24 Pulse Rate 103 H 12/17/18 13:24 Respiratory Rate 16 12/17/18 13:24 Blood Pressure 112/72 12/17/18 13:24 O2 Sat by Pulse Oximetry (%) Laboratory Tests 12/15/18 12/16/18 12/16/18 14:50 08:00 08:00 WBC 2.4 L RBC 3.63 L Hgb 12.5 Hct 36.5 MCV 100.8 H MCH 34.6 H MCHC 34.3 RDW 18.0 H Plt Count 94 L D MPV 9.7 Platelet Comment No clumping noted Sodium 143 Potassium 3.7 Chloride 106 Carbon Dioxide 30 Anion Gap 6 L BUN 15.5 Creatinine 1.4 H Est GFR (CKD-EPI)AfAm 62.84 Est GFR (CKD-EPI)NonAf 54.22 Random Glucose 114 H Calcium 8.8 Total Bilirubin 0.9 AST 34 ALT 40 Alkaline Phosphatase 142 H Total Protein 6.4 Albumin 3.1 L Urine Color Dk yellow Urine Appearance Turbid Urine pH 5.5 Ur Specific [place] 1.027 Urine Protein 1+ H Urine Glucose (UA) Negative Urine Ketones Trace H Urine Blood Negative Urine Nitrite Negative Urine Bilirubin 1+ H Urine Urobilinogen 1.0 Ur Leukocyte Esterase Negative Urine WBC (Auto) 5 Urine RBC (Auto) 2 Urine Casts (Auto) 1 U Epithel Cells (Auto) 3.2 Urine Bacteria (Auto) 192.7 RPR Titer 12/16/18 12/17/18 08:00 09:40 WBC RBC Hgb Hct MCV MCH MCHC RDW Plt Count MPV Platelet Comment Sodium Potassium Chloride Carbon Dioxide Anion Gap BUN Creatinine Est GFR (CKD-EPI)AfAm Est GFR (CKD-EPI)NonAf Random Glucose Calcium Total Bilirubin AST ALT Alkaline Phosphatase Total Protein Albumin Urine Color Yellow Urine Appearance Clear Urine pH 7.0 D Ur Specific [place] 1.007 L Urine Protein Negative Urine Glucose (UA) Negative Urine Ketones Negative Urine Blood Negative Urine Nitrite Negative Urine Bilirubin Negative Urine Urobilinogen 0.2 Ur Leukocyte Esterase Negative Urine WBC (Auto) Urine RBC (Auto) Urine Casts (Auto) U Epithel Cells (Auto) Urine Bacteria (Auto) RPR Titer Nonreactive LABS NOTED. PATIENT REPORTS "BURNING SENSATION IN URINE X LAST SEVERAL DAYS. RESULTS OF REPEAT UA NOTED. RESULTS OF QFT /TB TEST PENDING. RESULTS OF BASIC METABOLIC PANEL PENDING. 12/17/18 14:02 Assessment: 12/17/18 14:04 WITHDRAWAL SYMPTOMS. AZOTEMIA. ELEVATED ALKALINE PHOSPHATASE LEVEL. LUEKOPENIA. THROMBOCYROPENIA. Plan: PATIENT CONTINUE DETOX. PRN PEPTO-BISMOL PO FOR DIARRHEA. PRN ZOFRAN SL FOR NAUSEA. D/C MAGNESIUM-CONTAINING MEDS. FOR ABNORMAL ADMISSION RENAL LAB VALUES. PATIENT ADVISED TO INCREASE DAILY PO WATER INTAKE AND TO FOLLOW-UP WITH [facility] AFTER DISCHARGE FROM DETOX UNIT IF REPORTED BURNING SENSATION IN URINE DOES NOT DIMINISH IN NEXT FEW DAYS. PATIENT VERBALIZED UNDERSTANDING OF RECOMMENDATION.
[2018-12-17 14:06] LABS: BLOOD UREA NITROGEN 17.8 mg/dL (7-18); CALCIUM 9.2 mg/dL (8.5-10.1); CREATININE 1.5 mg/dL (0.55-1.3); POTASSIUM 3.9 mmol/L (3.5-5.1)
[2018-12-17] MEDS: METHOCARBAMOL 500 MG TABLET PO PRN ×2 (15:04→22:40)
[2018-12-17] MEDS: hydrOXYzine PAMOATE 25 MG CAPSULE (FP) PO PRN (16:26)
[2018-12-17] MEDS: BISMUTH SUBSALICYLATE 524 MG/30 ML UD PO PRN (20:03)
[2018-12-17] MEDS: THIAMINE HCL 100 MG TABLET (FP) PO SCH (22:37)
[2018-12-17] MEDS: LIDOCAINE PATCH REMOVAL MC SCH (22:38)
[2018-12-17] MEDS: MELATONIN 5 MG TABLETS PO PRN (22:38)
[2018-12-17] MEDS: MENTHOL/PHENOL 1 EACH UD MM PRN (22:40)
[2018-12-18] MEDS ORDERED: chlordiazePOXIDE HCL 10 MG CAPSULE PO PRN
[2018-12-18] MEDS: chlordiazePOXIDE HCL 10 MG CAPSULE PO SCH ×4 (05:42→22:13)
[2018-12-18] MEDS: ACETAMINOPHEN 325 MG TABLET (FP) PO PRN ×2 (05:43→22:14)
--- NOTE | 2018-12-18 10:22 | PN ---
[facility] CIWA - CIWA Score Nausea/Vomitin Muscle Tremors: 2 Anxiety: 1-Mildly Anxious Agitation: 2 Paroxysmal Sweats: No Perspiration Orientation: 0-Oriented Tacttile Disturbances: 0-None Auditory Disturbances: 0-None Visual Disturbances: 0-None Headache: 2-Mild CIWA-Ar Total Score: 9 [facility] Progress Note (SOAP) Subjective: alert,irritable,anxious,interrupted sleep Objective: 12/18/18 10:21 Vital Signs Temperature 97.2 F L 12/18/18 09:10 Pulse Rate 103 H 12/18/18 09:10 Respiratory Rate 16 12/18/18 09:10 Blood Pressure 128/81 12/18/18 09:10 O2 Sat by Pulse Oximetry (%) Assessment: 12/18/18 10:21 Vital Signs Temperature 97.2 F L 12/18/18 09:10 Pulse Rate 103 H 12/18/18 09:10 Respiratory Rate 16 12/18/18 09:10 Blood Pressure 128/81 12/18/18 09:10 O2 Sat by Pulse Oximetry (%) 12/18/18 10:21 withdrawal symptom Plan: continue detox librium regimen,discharge in am
[2018-12-18] MEDS: PANTOPRAZOLE 40 MG TABLET (FP) PO SCH (10:23)
[2018-12-18] MEDS: APIXABAN 2.5 MG TABLET PO SCH ×2 (10:23→22:13)
[2018-12-18] MEDS: PRENATAL VITAMINS W/ FOLIC ACID TABLET (FP) PO SCH (10:23)
[2018-12-18] MEDS: NIFEdipine E.R. 30 MG TABLET (FP) PO SCH (10:23)
[2018-12-18] MEDS: LIDOCAINE 5% TOPICAL PATCH TP SCH (10:24)
[2018-12-18] MEDS: METHOCARBAMOL 500 MG TABLET PO PRN (10:26)
[2018-12-18] MEDS: BISMUTH SUBSALICYLATE 524 MG/30 ML UD PO PRN (19:11)
[2018-12-18] MEDS: THIAMINE HCL 100 MG TABLET (FP) PO SCH (22:12)
[2018-12-18] MEDS: LIDOCAINE PATCH REMOVAL MC SCH (22:13)
[2018-12-18] MEDS: MELATONIN 5 MG TABLETS PO PRN (22:17)
[2018-12-19] MEDS: MENTHOL/PHENOL 1 EACH UD MM PRN (00:04)
[2018-12-19] MEDS: hydrOXYzine PAMOATE 25 MG CAPSULE (FP) PO PRN ×2 (03:04→13:51)
[2018-12-19] MEDS: chlordiazePOXIDE HCL 10 MG CAPSULE PO SCH ×2 (05:38→17:52)
[2018-12-19] MEDS: ACETAMINOPHEN 325 MG TABLET (FP) PO PRN ×2 (05:39→17:53)
--- NOTE | 2018-12-19 08:25 | DS ---
[facility] Detox Discharge Summary Admission Date: 12/15/18 Discharge Date: 12/19/18 - History Present History: Alcohol Dependence - Physical Exam Results Vital Signs: Vital Signs Temperature 97.9 F 12/19/18 07:45 Pulse Rate 113 H 12/19/18 07:45 Respiratory Rate 20 12/19/18 07:45 Blood Pressure 113/89 12/19/18 07:45 O2 Sat by Pulse Oximetry (%) Pertinent Admission Physical Exam Findings: pt arrived in [facility] Laboratory Tests 12/15/18 12/16/18 12/16/18 14:50 08:00 08:00 WBC 2.4 L RBC 3.63 L Hgb 12.5 Hct 36.5 MCV 100.8 H MCH 34.6 H MCHC 34.3 RDW 18.0 H Plt Count 94 L D MPV 9.7 Platelet Comment No clumping noted Sodium 143 Potassium 3.7 Chloride 106 Carbon Dioxide 30 Anion Gap 6 L BUN 15.5 Creatinine 1.4 H Est GFR (CKD-EPI)AfAm 62.84 Est GFR (CKD-EPI)NonAf 54.22 Random Glucose 114 H Calcium 8.8 Total Bilirubin 0.9 AST 34 ALT 40 Alkaline Phosphatase 142 H Total Protein 6.4 Albumin 3.1 L Urine Color Dk yellow Urine Appearance Turbid Urine pH 5.5 Ur Specific [place] 1.027 Urine Protein 1+ H Urine Glucose (UA) Negative Urine Ketones Trace H Urine Blood Negative Urine Nitrite Negative Urine Bilirubin 1+ H Urine Urobilinogen 1.0 Ur Leukocyte Esterase Negative Urine WBC (Auto) 5 Urine RBC (Auto) 2 Urine Casts (Auto) 1 U Epithel Cells (Auto) 3.2 Urine Bacteria (Auto) 192.7 RPR Titer 12/16/18 12/17/18 12/17/18 08:00 09:40 10:00 WBC RBC Hgb Hct MCV MCH MCHC RDW Plt Count MPV Platelet Comment Sodium 139 Potassium 3.9 Chloride 102 Carbon Dioxide 32 Anion Gap 6 L BUN 17.8 Creatinine 1.5 H Est GFR (CKD-EPI)AfAm 57.82 Est GFR (CKD-EPI)NonAf 49.88 Random Glucose 108 H Calcium 9.2 Total Bilirubin AST ALT Alkaline Phosphatase Total Protein Albumin Urine Color Yellow Urine Appearance Clear Urine pH 7.0 D Ur Specific [place] 1.007 L Urine Protein Negative Urine Glucose (UA) Negative Urine Ketones Negative Urine Blood Negative Urine Nitrite Negative Urine Bilirubin Negative Urine Urobilinogen 0.2 Ur Leukocyte Esterase Negative Urine WBC (Auto) Urine RBC (Auto) Urine Casts (Auto) U Epithel Cells (Auto) Urine Bacteria (Auto) RPR Titer Nonreactive today pt is aaox3 ambulating no acute distress no s/s of withdrawalsx - Treatment Hospital Course: Detox Protocol Followed, Detoxed Safely, Responded well, Discharged Condition Good, Rehab Referral Accepted Patient has Accepted a Rehab Referral to: pt declined rehab; referrals provided - Medication Discharge Medications: Ambulatory Orders Loratadine [Claritin -] 10 mg PO HS 07/22/16 Naproxen [Naprosyn -] 500 mg PO BID 07/22/16 Omeprazole 40 mg PO HS PRN 07/22/16 Apixaban [Eliquis] 2.5 mg PO BID 12/15/18 Nifedipine [Procardia Xl] 30 mg PO DAILY 12/15/18 - Diagnosis (1) Alcohol dependence with uncomplicated withdrawal Current Visit: Yes Status: Chronic (2) Chronic back pain Current Visit: Yes Status: Chronic Qualifiers: Back pain location: low back pain Back pain laterality: bilateral Sciatica presence: without sciatica Qualified Code(s): M54.5 - Low back pain; G89.29 - Other chronic pain (3) GERD (gastroesophageal reflux disease) Current Visit: Yes Status: Chronic Qualifiers: Esophagitis presence: without esophagitis Qualified Code(s): K21.9 - Gastro -esophageal reflux disease without esophagitis (4) Hip pain, chronic Current Visit: Yes Status: Chronic Qualifiers: Laterality: bilateral Qualified Code(s): M25.551 - Pain in right hip; M25.552 - Pain in left hip; G89.29 - Other chronic pain (5) History of DVT (deep vein thrombosis) Current Visit: Yes Status: Chronic (6) Hypertension Current Visit: Yes Status: Chronic Qualifiers: Hypertension type: essential hypertension Qualified Code(s): I10 - Essential (primary) hypertension (7) Insomnia Current Visit: No Status: Acute (8) Psoriasis Current Visit: No Status: Acute (9) Chronic pruritus Current Visit: No Status: Chronic - AMA Did Patient Leave Against Medical Advice: No
[2018-12-19] MEDS: NIFEdipine E.R. 30 MG TABLET (FP) PO SCH (10:26)
[2018-12-19] MEDS: PRENATAL VITAMINS W/ FOLIC ACID TABLET (FP) PO SCH (10:26)
[2018-12-19] MEDS: APIXABAN 2.5 MG TABLET PO SCH ×2 (10:26→22:19)
[2018-12-19] MEDS: PANTOPRAZOLE 40 MG TABLET (FP) PO SCH (10:26)
[2018-12-19] MEDS: LIDOCAINE 5% TOPICAL PATCH TP SCH (10:27)
--- NOTE | 2018-12-19 13:40 | PN ---
S CIWA - CIWA Score Nausea/Vomitin-No Nausea/No Vomiting Muscle Tremors: 2 Anxiety: 1-Mildly Anxious Agitation: 1-Slight > Activity Paroxysmal Sweats: No Perspiration Orientation: 0-Oriented Tacttile Disturbances: 0-None Auditory Disturbances: 0-None Visual Disturbances: 0-None Headache: 0-None Present CIWA-Ar Total Score: 4 [facility] Progress Note (SOAP) Subjective: mild anxiety little sweats Objective: 12/19/18 13:39 Vital Signs Temperature 98.6 F 12/19/18 13:12 Pulse Rate 102 H 12/19/18 13:12 Respiratory Rate 18 12/19/18 13:12 Blood Pressure 122/85 12/19/18 13:12 O2 Sat by Pulse Oximetry (%) aaox3 ambulating no acute distress Assessment: 12/19/18 13:39 mild withdrawals Plan: continue detox increase fluids d/c in am
[2018-12-19] MEDS: METHOCARBAMOL 500 MG TABLET PO PRN ×2 (13:51→22:21)
[2018-12-19] MEDS: BISMUTH SUBSALICYLATE 524 MG/30 ML UD PO PRN (19:24)
[2018-12-19] MEDS: MELATONIN 5 MG TABLETS PO PRN (22:19)
[2018-12-19] MEDS: THIAMINE HCL 100 MG TABLET (FP) PO SCH (22:19)
[2018-12-19] MEDS: LIDOCAINE PATCH REMOVAL MC SCH (22:43)
[2018-12-20] MEDS ORDERED: chlordiazePOXIDE HCL 10 MG CAPSULE PO ONE (05:00)
[2018-12-20] MEDS: METHOCARBAMOL 500 MG TABLET PO PRN (06:08)
[2018-12-20 08:21] VITALS: BP 110/74; PULSE 72; TEMP 97.3
--- NOTE | 2018-12-20 09:58 | DS ---
[facility] Detox Discharge Summary Admission Date: 12/15/18 Discharge Date: 12/20/18 - History Present History: Alcohol Dependence - Physical Exam Results Vital Signs: Vital Signs Temperature 97.3 F L 12/20/18 08:20 Pulse Rate 72 12/20/18 08:20 Respiratory Rate 16 12/20/18 08:20 Blood Pressure 110/74 12/20/18 08:20 O2 Sat by Pulse Oximetry (%) Pertinent Admission Physical Exam Findings: pt arrived in [facility] Laboratory Tests 12/15/18 12/16/18 12/16/18 14:50 08:00 08:00 WBC 2.4 L RBC 3.63 L Hgb 12.5 Hct 36.5 MCV 100.8 H MCH 34.6 H MCHC 34.3 RDW 18.0 H Plt Count 94 L D MPV 9.7 Platelet Comment No clumping noted Sodium 143 Potassium 3.7 Chloride 106 Carbon Dioxide 30 Anion Gap 6 L BUN 15.5 Creatinine 1.4 H Est GFR (CKD-EPI)AfAm 62.84 Est GFR (CKD-EPI)NonAf 54.22 Random Glucose 114 H Calcium 8.8 Total Bilirubin 0.9 AST 34 ALT 40 Alkaline Phosphatase 142 H Total Protein 6.4 Albumin 3.1 L Urine Color Dk yellow Urine Appearance Turbid Urine pH 5.5 Ur Specific [place] 1.027 Urine Protein 1+ H Urine Glucose (UA) Negative Urine Ketones Trace H Urine Blood Negative Urine Nitrite Negative Urine Bilirubin 1+ H Urine Urobilinogen 1.0 Ur Leukocyte Esterase Negative Urine WBC (Auto) 5 Urine RBC (Auto) 2 Urine Casts (Auto) 1 U Epithel Cells (Auto) 3.2 Urine Bacteria (Auto) 192.7 RPR Titer TB (QFT) Incubation TB Test (QFT) Nil TB Test (QFT) Mitogen TB Test (QFT) Antigen TB Test (QFT) TB Positive Criteria 12/16/18 12/16/18 12/17/18 08:00 08:50 09:40 WBC RBC Hgb Hct MCV MCH MCHC RDW Plt Count MPV Platelet Comment Sodium Potassium Chloride Carbon Dioxide Anion Gap BUN Creatinine Est GFR (CKD-EPI)AfAm Est GFR (CKD-EPI)NonAf Random Glucose Calcium Total Bilirubin AST ALT Alkaline Phosphatase Total Protein Albumin Urine Color Yellow Urine Appearance Clear Urine pH 7.0 D Ur Specific [place] 1.007 L Urine Protein Negative Urine Glucose (UA) Negative Urine Ketones Negative Urine Blood Negative Urine Nitrite Negative Urine Bilirubin Negative Urine Urobilinogen 0.2 Ur Leukocyte Esterase Negative Urine WBC (Auto) Urine RBC (Auto) Urine Casts (Auto) U Epithel Cells (Auto) Urine Bacteria (Auto) RPR Titer Nonreactive TB (QFT) Incubation TB Test (QFT) Nil 0.02 TB Test (QFT) Mitogen >10.00 TB Test (QFT) Antigen 0.02 TB Test (QFT) Negative TB Positive Criteria 12/17/18 10:00 WBC RBC Hgb Hct MCV MCH MCHC RDW Plt Count MPV Platelet Comment Sodium 139 Potassium 3.9 Chloride 102 Carbon Dioxide 32 Anion Gap 6 L BUN 17.8 Creatinine 1.5 H Est GFR (CKD-EPI)AfAm 57.82 Est GFR (CKD-EPI)NonAf 49.88 Random Glucose 108 H Calcium 9.2 Total Bilirubin AST ALT Alkaline Phosphatase Total Protein Albumin Urine Color Urine Appearance Urine pH Ur Specific [place] Urine Protein Urine Glucose (UA) Urine Ketones Urine Blood Urine Nitrite Urine Bilirubin Urine Urobilinogen Ur Leukocyte Esterase Urine WBC (Auto) Urine RBC (Auto) Urine Casts (Auto) U Epithel Cells (Auto) Urine Bacteria (Auto) RPR Titer TB (QFT) Incubation TB Test (QFT) Nil TB Test (QFT) Mitogen TB Test (QFT) Antigen TB Test (QFT) TB Positive Criteria today pt is aaox3 ambulating no acute distress no s/s of withdrawals - Treatment Hospital Course: Detox Protocol Followed, Detoxed Safely, Responded well, Discharged Condition Good, Rehab Referral Accepted Patient has Accepted a Rehab Referral to: pt declined rehab; referral provided - Medication Discharge Medications: Ambulatory Orders Loratadine [Claritin -] 10 mg PO HS 07/22/16 Naproxen [Naprosyn -] 500 mg PO BID 07/22/16 Omeprazole 40 mg PO HS PRN 07/22/16 Apixaban [Eliquis] 2.5 mg PO BID 12/15/18 Nifedipine [Procardia Xl] 30 mg PO DAILY 12/15/18 - Diagnosis (1) Alcohol dependence with uncomplicated withdrawal Current Visit: Yes Status: Chronic (2) Chronic back pain Current Visit: Yes Status: Chronic Qualifiers: Back pain location: low back pain Back pain laterality: bilateral Sciatica presence: without sciatica Qualified Code(s): M54.5 - Low back pain; G89.29 - Other chronic pain (3) GERD (gastroesophageal reflux disease) Current Visit: Yes Status: Chronic Qualifiers: Esophagitis presence: without esophagitis Qualified Code(s): K21.9 - Gastro -esophageal reflux disease without esophagitis (4) Hip pain, chronic Current Visit: Yes Status: Chronic Qualifiers: Laterality: bilateral Qualified Code(s): M25.551 - Pain in right hip; M25.552 - Pain in left hip; G89.29 - Other chronic pain (5) History of DVT (deep vein thrombosis) Current Visit: Yes Status: Chronic (6) Hypertension Current Visit: Yes Status: Chronic Qualifiers: Hypertension type: essential hypertension Qualified Code(s): I10 - Essential (primary) hypertension (7) Insomnia Current Visit: No Status: Acute (8) Psoriasis Current Visit: No Status: Acute (9) Chronic pruritus Current Visit: No Status: Chronic - AMA Did Patient Leave Against Medical Advice: No
== END 2018-12-20 08:31 | disposition home or self-care (01) | DRG 773 ==
LOC: YASAS 08:34 → Y6N 10:51
PROVIDERS: ADMIT Surgery; ATTEND Surgery
PROC: HZ2ZZZZ Detoxification Services for Substance Abuse Treatment (ICD-10-PCS; principal; 2018-12-15)
DX: F10.230 Alcohol dependence with withdrawal, uncomplicated (principal); F11.10 Opioid abuse, uncomplicated; I10 Essential (primary) hypertension; G47.00 Insomnia, unspecified; L40.9 Psoriasis, unspecified; M54.5 Low back pain; M25.551 Pain in right hip; M25.552 Pain in left hip; G89.29 Other chronic pain; K21.9 Gastro-esophageal reflux disease without esophagitis; L29.9 Pruritus, unspecified; R79.89 Other specified abnormal findings of blood chemistry; R74.8 Abnormal levels of other serum enzymes; R82.90 Unspecified abnormal findings in urine; D72.819 Decreased white blood cell count, unspecified; D69.6 Thrombocytopenia, unspecified; Z87.891 Personal history of nicotine dependence; Z86.718 Personal history of other venous thrombosis and embolism
CPT/HCPCS: 36415; 80048; 80053; 81003; 85027; 86480; 86593; 93005; 93010

== ENCOUNTER 2019-01-02 08:24 | Inpatient (IN) | payer OTHER ==
[2019-01-02 09:24] VITALS: BMI 25.4
--- NOTE | 2019-01-02 10:05 | HP ---
CIWA Score Nausea/Vomitin Muscle Tremors: 3 Anxiety: 3 Agitation: 3 Paroxysmal Sweats: 1-Minimal Palms Moist Orientation: 0-Oriented Tacttile Disturbances: 1-Very Mild Itch/Numbness Auditory Disturbances: 0-None Visual Disturbances: 0-None Headache: 2-Mild CIWA-Ar Total Score: 15 - Admission Criteria [facility] Guidelines: Admission for Medically Managed Detox: Requires at least one of the followin. CIWA greater than 12 2. Seizures within the past 24 hours 3. Delirium tremens within the past 24 hours 4. Hallucinations within the past 24 hours 5. Acute intervention needed for co occurring medical disorder 6. Acute intervention needed for co occurring psychiatric disorder 7. Severe withdrawal that cannot be handled at a lower level of care (continued vomiting, continued diarrhea, abnormal vital signs) requiring intravenous medication and/or fluids 8. Admission ROS S - HPI Chief Complaint: i need help to stop drinking alcohol,heroin abused Allergies/Adverse Reactions: Allergies Allergy/AdvReac Type Severity Reaction Status Date / Time No Known Allergies Allergy Verified 01/02/19 09:15 History of Present Illness: this 58years old male with alcohol dependence,seeking help to stop,had previous admission in the past, last detox from 12/15/18 to 12/20/18 has syncope last night ,has subconjunctival hemorrhage left superficial abrasion of nose history of hypertension,dvt right leg,pulmonary embolism, has vena caval filter and removal longest sobriety 10years from 1999 to 2008 plan for [facility] after detox also has heroin abused Exam Limitations: No Limitations - Ebola screening Have you traveled outside of the country in the last 21 days: No Have you had contact with anyone from an Ebola affected area: No Do you have a fever: No - Review of Systems Constitutional: Loss of Appetite, Malaise, Night Sweats, Changes in sleep EENT: reports: Nose Congestion, Other (sbconjunctival hemorrhage laterl aspect of left eye vision ok,movement of eys ball no limitation no diplopia abrasion of nose) Respiratory: reports: No Symptoms reported Cardiac: reports: No Symptoms Reported GI: reports: Diarrhea, Nausea, Poor Appetite : reports: No Symptoms Reported Musculoskeletal: reports: Back Pain, Muscle Pain Integumentary: reports: Dryness Neuro: reports: Tremors Endocrine: reports: No Symptoms Reported Hematology: reports: No Symptoms Reported Psychiatric: reports: No Sypmtoms Reported, Judgement Intact, Mood/Affect Appropiate, Orientated x3 Other Systems: Reviewed and Negative Patient History - Patient Medical History Hx Anemia: No Hx Asthma: No Hx Chronic Obstructive Pulmonary Disease (COPD): No Hx Cancer: No Hx Cardiac Disorders: No Hx Congestive Heart Failure: No Hx Hypertension: Yes (on medication) Hx Hypercholesterolemia: No Hx Pacemaker: No HX Cerebrovascular Accident: No Hx Seizures: No Hx Dementia: No Hx Diabetes: No Hx Gastrointestinal Disorders: Yes (GERD,hiatus hernia) Hx Liver Disease: No Hx Genitourinary Disorders: No Hx Sexually Transmitted Disorders: No Hx Renal Disease (ESRD): Yes (mild renal insuffficiency) Hx Thyroid Disease: No Hx Human Immunodeficiency Virus (HIV): No Hx Hepatitis C: No Hx Depression: No Hx Suicide Attempt: No (denies) Hx Bipolar Disorder: No Hx Schizophrenia: No Other Medical History: no sucidal,no homicidal - Patient Surgical History Past Surgical History: Yes Hx Neurologic Surgery: No Hx Cataract Extraction: No Hx Cardiac Surgery: No Hx Lung Surgery: No Hx Breast Surgery: No Hx Breast Biopsy: No Hx Abdominal Surgery: No Hx Appendectomy: No Hx Cholecystectomy: No Hx Genitourinary Surgery: No Hx Orthopedic Surgery: Yes (shoulder rotator cuff repair AGE 46 left) Other Surgical History: IVP FILTER / PILOCYST REMOVED 2005 Anesthesia Reaction: No - PPD History Previous Implant?: Yes Documented Results: Negative w/o proof Implanted On [facility] Admission?: Yes Date: 07/24/16 Results: 0 mm PPD to be Administered?: No - Smoking Cessation Smoking history: Never smoked Have you smoked in the past 12 months: No Aproximately how many cigarettes per day: 0 Cigars Per Day: 0 Hx Chewing Tobacco Use: No - Substance & Tx. History Hx Alcohol Use: Yes Hx Substance Use: Yes Substance Use Type: Alcohol Hx Substance Use Treatment: Yes ([facility] 12/15/18 to 12/20/18 ) - Substances abused Alcohol Substance route: Oral Frequency: Daily Amount used: 5 PINTS OF VODKA Age of first use: 16 Date of last use: 01/01/19 Heroin Substance route: Inhalation Frequency: 3-6 times per week Amount used: 2 BAGS (it's off an on, not everyday) Age of first use: 16 (2-3 times per week) Date of last use: 12/12/18 (urine tox negative for opiates) Family Disease History - Family Disease History Family Disease History: Heart Disease: Mother (), Other: Father (NO CONTACT ), Mother Admission Physical Exam S - Vital Signs Vital Signs: Vital Signs - 24 hr 01/02/19 09:15 Temperature 97.9 F Pulse Rate 86 Respiratory 18 Rate Blood Pressure 130/87 - Physical General Appearance: Yes: Moderate Distress, Tremorous, Irritable, Sweating, Anxious HEENTM: Yes: Normal ENT Inspection, Pharynx Normal (subconjunctival hemorrhage lateral aspecy left eye vision ok no diploapia no nubness of left infraorbital area abrasion of nose) Respiratory: Yes: Lungs Clear, Normal Breath Sounds, No Respiratory Distress Neck: Yes: Within Normal Limits, Supple, Trachea in good position Breast: Yes: Within Normal Limits Cardiology: Yes: Within Normal Limits, Regular Rhythm, Regular Rate, S1, S2 Abdominal: Yes: Normal Bowel Sounds, Non Tender, Flat, Soft Genitourinary: Yes: Within Normal Limits Back: Yes: Muscle Spasm Musculoskeletal: Yes: Back pain, Muscle Pain Extremities: Yes: Tremors, Erythema Neurological: Yes: Within Normal Limits, Fully Oriented, Alert, Motor Strength 5 /5 Integumentary: Yes: Dry Lymphatic: Yes: Within Normal Limits - Diagnostic (1) Heroin abuse Current Visit: Yes Status: Acute (2) Alcohol dependence with uncomplicated withdrawal Current Visit: No Status: Chronic (3) Chronic back pain Current Visit: No Status: Chronic Qualifiers: Back pain location: low back pain Back pain laterality: bilateral Sciatica presence: without sciatica Qualified Code(s): M54.5 - Low back pain; G89.29 - Other chronic pain Comment: needs cane (4) GERD (gastroesophageal reflux disease) Current Visit: No Status: Chronic Qualifiers: Esophagitis presence: without esophagitis Qualified Code(s): K21.9 - Gastro -esophageal reflux disease without esophagitis (5) Hip pain, chronic Current Visit: No Status: Chronic Qualifiers: Laterality: bilateral Qualified Code(s): M25.551 - Pain in right hip; M25.552 - Pain in left hip; G89.29 - Other chronic pain (6) History of DVT (deep vein thrombosis) Current Visit: No Status: Chronic (7) History of pulmonary embolism Current Visit: Yes Status: Acute (8) Syncope Current Visit: Yes Status: Acute (9) Abrasion, nose w/o infection Current Visit: Yes Status: Acute (10) Subconjunctival hemorrhage Current Visit: Yes Status: Acute Cleared for Admission S - Detox or Rehab [facility] Level of Care: Medically Managed Detox Regimen/Protocol: Librium Breathalyzer - Breathalyzer Breathalyzer: 0 Urine Drug Screen - Test Device Lot number: [id number] Expiration date: 09/19/19 - Control Is test valid?: Yes - Results Drug screen NEGATIVE: Yes Inpatient Rehab Admission - Rehab Decision to Admit Inpatient rehab admission?: No
[2019-01-02] MEDS ORDERED: ACETAMINOPHEN 325 MG TABLET (FP) PO PRN (10:27)
[2019-01-02] MEDS ORDERED: MAGNESIUM CITRATE 300 ML BOTTLE PO PRN (10:27)
[2019-01-02] MEDS ORDERED: MAGNESIUM HYDROX 2400MG/30ML ORAL SUSPENSION 30 ML CUP PO PRN (10:27)
[2019-01-02] MEDS: chlordiazePOXIDE HCL 25 MG CAPSULE PO PRN (12:33)
[2019-01-02] MEDS: BACITRACIN 15 GM TUBE TOPICAL OINTMENT TP SCH ×2 (12:35→22:12)
[2019-01-02 12:49] LABS: PROTHROMBIN TIME (PATIENT) 11.8 SEC (9.7-13.0)
[2019-01-02 15:14] LABS: ALBUMIN 3.3 g/dl (3.4-5.0); BILIRUBIN,TOTAL 0.4 mg/dL (0.2-1); BLOOD UREA NITROGEN 9.5 mg/dL (7-18); CALCIUM 8.5 mg/dL (8.5-10.1); CREATININE 1.4 mg/dL (0.55-1.3); POTASSIUM 4.2 mmol/L (3.5-5.1)
[2019-01-02 15:23] LABS: HEMATOCRIT 36.4 % (35.4-49); HEMOGLOBIN 12.2 GM/dL (11.7-16.9); MCH 34.5 pg (25.7-33.7); MCHC 33.4 g/dl (32.0-35.9); MEAN CELL VOLUME 103.2 fl (80-96); MEAN PLT VOLUME 8.1 fl (7.5-11.1); PLATELET COUNT 267 K/MM3 (134-434); RBC 3.52 M/mm3 (4.00-5.60); RDW 18.5 % (11.9-15.9); WHITE BLOOD COUNT 2.7 K/mm3 (4.0-10.0)
[2019-01-02] MEDS: METHOCARBAMOL 500 MG TABLET PO PRN ×2 (15:39→22:13)
[2019-01-02] MEDS: hydrOXYzine HCL 25 MG TABLET (FP) PO PRN (15:49)
[2019-01-02] MEDS: chlordiazePOXIDE HCL 25 MG CAPSULE PO SCH ×2 (16:58→22:11)
[2019-01-02] MEDS: ACETAMINOPHEN 325 MG TABLET (FP) PO PRN (17:01)
[2019-01-02] MEDS: BISMUTH SUBSALICYLATE 524 MG/30 ML UD PO PRN ×2 (17:01→21:38)
[2019-01-02] MEDS: LIDOCAINE 5% TOPICAL PATCH TP SCH (18:19)
[2019-01-02] MEDS ORDERED: ACETAMINOPHEN 325 MG TABLET (FP) PO ONE (18:30)
[2019-01-02] MEDS: MAG HYDROX/AL HYDROX/SIMETH 30 ML UNIT-DOSE CUP PO PRN (20:28)
[2019-01-02] MEDS: APIXABAN 2.5 MG TABLET PO SCH (22:12)
[2019-01-02] MEDS: THIAMINE HCL 100 MG TABLET (FP) PO SCH (22:12)
[2019-01-02] MEDS: MELATONIN 5 MG TABLETS PO PRN (22:13)
[2019-01-02 22:14] LABS: URINE APPEARANCE CLEAR; URINE BILIRUBIN NEGATIVE (NEGATIVE); URINE COLOR YELLOW; URINE GLUCOSE (UA) NEGATIVE (NEGATIVE); URINE KETONE NEGATIVE (NEGATIVE); URINE LEUK ESTERASE NEGATIVE (NEGATIVE); URINE NITRITE NEGATIVE (NEGATIVE); URINE PROTEIN NEGATIVE (NEGATIVE); URINE UROBILINOGEN 0.2 mg/dL (0.2-1.0)
[2019-01-02] MEDS: MENTHOL/PHENOL 1 EACH UD MM PRN (22:14)
[2019-01-03] MEDS: chlordiazePOXIDE HCL 25 MG CAPSULE PO SCH ×4 (05:20→22:25)
[2019-01-03] MEDS: chlordiazePOXIDE HCL 25 MG CAPSULE PO PRN ×2 (09:05→13:54)
[2019-01-03] MEDS: LIDOCAINE 5% TOPICAL PATCH TP SCH (10:08)
[2019-01-03] MEDS: APIXABAN 2.5 MG TABLET PO SCH ×2 (10:08→22:25)
[2019-01-03] MEDS: PRENATAL VITAMINS W/ FOLIC ACID TABLET (FP) PO SCH (10:08)
[2019-01-03] MEDS: BACITRACIN 15 GM TUBE TOPICAL OINTMENT TP SCH ×2 (10:08→22:24)
[2019-01-03] MEDS: NIFEdipine E.R. 30 MG TABLET (FP) PO SCH (10:10)
[2019-01-03] MEDS: PANTOPRAZOLE 40 MG TABLET (FP) PO SCH (10:10)
[2019-01-03] MEDS: ACETAMINOPHEN 325 MG TABLET (FP) PO PRN ×2 (10:11→17:29)
[2019-01-03] MEDS: LIDOCAINE PATCH REMOVAL MC SCH (11:41)
--- NOTE | 2019-01-03 17:16 | PN ---
[facility] CIWA - CIWA Score Nausea/Vomitin-Mild Nausea/No Vomiting Muscle Tremors: 3 Anxiety: 2 Agitation: 3 Paroxysmal Sweats: 2 Orientation: 0-Oriented Tacttile Disturbances: 0-None Auditory Disturbances: 0-None Visual Disturbances: 0-None Headache: 1-Very Mild CIWA-Ar Total Score: 12 S Progress Note (SOAP) Subjective: 58 years old male admitted on 01/02/19 for acute alcohol withdrawal sx management waiting for left hip placement cane ordered left eye redness denies trauma denies alteration of vision acuity denies pain artificial tear to left eye Objective: 01/03/19 17:15 Vital Signs Temperature 97.3 F L 01/03/19 13:47 Pulse Rate 95 H 01/03/19 13:47 Respiratory Rate 18 01/03/19 13:47 Blood Pressure 126/87 01/03/19 13:47 O2 Sat by Pulse Oximetry (%) Laboratory Last Values WBC 2.7 K/mm3 (4.0-10.0) L 01/02/19 10:30 RBC 3.52 M/mm3 (4.00-5.60) L 01/02/19 10:30 Hgb 12.2 GM/dL (11.7-16.9) 01/02/19 10:30 Hct 36.4 % (35.4-49) 01/02/19 10:30 MCV 103.2 fl (80-96) H 01/02/19 10:30 MCH 34.5 pg (25.7-33.7) H 01/02/19 10:30 MCHC 33.4 g/dl (32.0-35.9) 01/02/19 10:30 RDW 18.5 % (11.9-15.9) H 01/02/19 10:30 Plt Count 267 K/MM3 (134-434) D 01/02/19 10:30 MPV 8.1 fl (7.5-11.1) D 01/02/19 10:30 PT with INR 11.80 SEC (9.7-13.0) 01/02/19 10:20 INR 1.00 (0.83-1.09) 01/02/19 10:20 Sodium 138 mmol/L (136-145) 01/02/19 10:30 Potassium 4.2 mmol/L (3.5-5.1) 01/02/19 10:30 Chloride 103 mmol/L (98-107) 01/02/19 10:30 Carbon Dioxide 25 mmol/L (21-32) 01/02/19 10:30 Anion Gap 9 MMOL/L (8-16) 01/02/19 10:30 BUN 9.5 mg/dL (7-18) 01/02/19 10:30 Creatinine 1.4 mg/dL (0.55-1.3) H 01/02/19 10:30 Est GFR (CKD-EPI)AfAm 62.84 01/02/19 10:30 Est GFR (CKD-EPI)NonAf 54.22 01/02/19 10:30 Random Glucose 68 mg/dL (74-106) L 01/02/19 10:30 Calcium 8.5 mg/dL (8.5-10.1) 01/02/19 10:30 Total Bilirubin 0.4 mg/dL (0.2-1) 01/02/19 10:30 AST 38 U/L (15-37) H 01/02/19 10:30 ALT 25 U/L (13-61) 01/02/19 10:30 Alkaline Phosphatase 118 U/L (45-117) H 01/02/19 10:30 Total Protein 7.0 g/dl (6.4-8.2) 01/02/19 10:30 Albumin 3.3 g/dl (3.4-5.0) L 01/02/19 10:30 Urine Color Yellow 01/02/19 19:40 Urine Appearance Clear 01/02/19 19:40 Urine pH 5.0 (5.0-8.0) D 01/02/19 19:40 Ur Specific [place] 1.008 (1.010-1.035) L 01/02/19 19:40 Urine Protein Negative (NEGATIVE) 01/02/19 19:40 Urine Glucose (UA) Negative (NEGATIVE) 01/02/19 19:40 Urine Ketones Negative (NEGATIVE) 01/02/19 19:40 Urine Blood Negative (NEGATIVE) 01/02/19 19:40 Urine Nitrite Negative (NEGATIVE) 01/02/19 19:40 Urine Bilirubin Negative (NEGATIVE) 01/02/19 19:40 Urine Urobilinogen 0.2 mg/dL (0.2-1.0) 01/02/19 19:40 Ur Leukocyte Esterase Negative (NEGATIVE) 01/02/19 19:40 RPR Titer Nonreactive (NONREACTIVE) 01/02/19 10:30 lab noted Assessment: 01/03/19 17:16 alcohol withdrawal sx alert oriented x 3 01/03/19 17:16 S1S2 Regular Plan: continue librium detox regimen
[2019-01-03] MEDS ORDERED: ONDANSETRON *ODT* 4 MG TABLET SL ONE (17:30)
[2019-01-03] MEDS: METHOCARBAMOL 500 MG TABLET PO PRN (17:32)
[2019-01-03] MEDS: ARTIFICIAL TEARS (POLYVINYL ALCOHOL) OPTH DROPS OS SCH ×2 (18:14→22:24)
[2019-01-03] MEDS: MAG HYDROX/AL HYDROX/SIMETH 30 ML UNIT-DOSE CUP PO PRN (18:27)
[2019-01-03] MEDS: MELATONIN 5 MG TABLETS PO PRN (22:25)
[2019-01-03] MEDS: THIAMINE HCL 100 MG TABLET (FP) PO SCH (22:25)
[2019-01-03] MEDS: MENTHOL/PHENOL 1 EACH UD MM PRN (22:26)
[2019-01-03] MEDS ORDERED: ONDANSETRON *ODT* 4 MG TABLET SL PRN (23:00)
[2019-01-04] MEDS: chlordiazePOXIDE HCL 25 MG CAPSULE PO SCH ×4 (05:21→22:10)
[2019-01-04] MEDS: hydrOXYzine HCL 25 MG TABLET (FP) PO PRN ×2 (07:30→17:31)
[2019-01-04] MEDS: PRENATAL VITAMINS W/ FOLIC ACID TABLET (FP) PO SCH (10:31)
[2019-01-04] MEDS: APIXABAN 2.5 MG TABLET PO SCH ×2 (10:31→22:10)
[2019-01-04] MEDS: NIFEdipine E.R. 30 MG TABLET (FP) PO SCH (10:31)
[2019-01-04] MEDS: LIDOCAINE 5% TOPICAL PATCH TP SCH (10:31)
[2019-01-04] MEDS: PANTOPRAZOLE 40 MG TABLET (FP) PO SCH (10:31)
[2019-01-04] MEDS: ARTIFICIAL TEARS (POLYVINYL ALCOHOL) OPTH DROPS OS SCH ×4 (10:32→22:09)
[2019-01-04] MEDS: BACITRACIN 15 GM TUBE TOPICAL OINTMENT TP SCH ×2 (10:32→22:09)
[2019-01-04] MEDS: LIDOCAINE PATCH REMOVAL MC SCH (10:34)
[2019-01-04] MEDS: ACETAMINOPHEN 325 MG TABLET (FP) PO PRN ×2 (12:29→18:18)
[2019-01-04] MEDS: chlordiazePOXIDE HCL 25 MG CAPSULE PO PRN (14:26)
--- NOTE | 2019-01-04 15:54 | PN ---
S CIWA - CIWA Score Nausea/Vomitin (And Diarrhea.) Muscle Tremors: 3 Anxiety: 3 Agitation: 2 Paroxysmal Sweats: No Perspiration Orientation: 2-Disoriented Date<2 days Tacttile Disturbances: 2-Mild Itch/Numbness/Burn Auditory Disturbances: 0-None Visual Disturbances: 1-Very Mild Sensitivity Headache: 0-None Present CIWA-Ar Total Score: 16 S Progress Note (SOAP) Subjective: Tremors, Body Aches, Nausea, Diarrhea. Objective: PATIENT A & O X 2 (UNCERTAIN ABOUT CURRENT DAY / DATE). PATIENT OBSERVED AMBULATING ON UNIT UNASSISTED. IN NO ACUTE DISTRESS. 01/04/19 15:55 Vital Signs Temperature 97.8 F 01/04/19 13:34 Pulse Rate 80 01/04/19 13:34 Respiratory Rate 18 01/04/19 13:34 Blood Pressure 122/87 01/04/19 13:34 O2 Sat by Pulse Oximetry (%) Laboratory Tests 01/02/19 01/02/19 01/02/19 10:20 10:30 10:30 WBC 2.7 L RBC 3.52 L Hgb 12.2 Hct 36.4 MCV 103.2 H MCH 34.5 H MCHC 33.4 RDW 18.5 H Plt Count 267 D MPV 8.1 D PT with INR 11.80 INR 1.00 Sodium 138 Potassium 4.2 Chloride 103 Carbon Dioxide 25 Anion Gap 9 BUN 9.5 Creatinine 1.4 H Est GFR (CKD-EPI)AfAm 62.84 Est GFR (CKD-EPI)NonAf 54.22 Random Glucose 68 L Calcium 8.5 Total Bilirubin 0.4 AST 38 H ALT 25 Alkaline Phosphatase 118 H Total Protein 7.0 Albumin 3.3 L Urine Color Urine Appearance Urine pH Ur Specific [place] Urine Protein Urine Glucose (UA) Urine Ketones Urine Blood Urine Nitrite Urine Bilirubin Urine Urobilinogen Ur Leukocyte Esterase RPR Titer 01/02/19 01/02/19 10:30 19:40 WBC RBC Hgb Hct MCV MCH MCHC RDW Plt Count MPV PT with INR INR Sodium Potassium Chloride Carbon Dioxide Anion Gap BUN Creatinine Est GFR (CKD-EPI)AfAm Est GFR (CKD-EPI)NonAf Random Glucose Calcium Total Bilirubin AST ALT Alkaline Phosphatase Total Protein Albumin Urine Color Yellow Urine Appearance Clear Urine pH 5.0 D Ur Specific [place] 1.008 L Urine Protein Negative Urine Glucose (UA) Negative Urine Ketones Negative Urine Blood Negative Urine Nitrite Negative Urine Bilirubin Negative Urine Urobilinogen 0.2 Ur Leukocyte Esterase Negative RPR Titer Nonreactive LABS NOTED. Assessment: 01/04/19 15:56 WITHDRAWAL SYMPTOMS. AZOTEMIA. LEUKOPENIA. 01/04/19 15:57 Plan: CONTINUE DETOX. INCREASE DAILY PO WATER INTAKE D/C MAGNESIUM-CONTAINING MEDS. FOR ABNORMAL ADMISSION RENAL LAB VALUES. PRN ZOFRAN SL FOR NAUSEA. PRN PEPTO-BISMOL PO FOR DIARRHEA.
[2019-01-04] MEDS: THIAMINE HCL 100 MG TABLET (FP) PO SCH (22:10)
[2019-01-04] MEDS: MELATONIN 5 MG TABLETS PO PRN (22:10)
[2019-01-04] MEDS: MENTHOL/PHENOL 1 EACH UD MM PRN (22:14)
[2019-01-05] MEDS ORDERED: chlordiazePOXIDE HCL 10 MG CAPSULE PO PRN
[2019-01-05] MEDS: chlordiazePOXIDE HCL 10 MG CAPSULE PO SCH ×4 (06:14→22:14)
[2019-01-05] MEDS: hydrOXYzine HCL 25 MG TABLET (FP) PO PRN ×2 (06:16→13:55)
[2019-01-05] MEDS: ACETAMINOPHEN 325 MG TABLET (FP) PO PRN ×2 (06:17→13:56)
[2019-01-05] MEDS: ARTIFICIAL TEARS (POLYVINYL ALCOHOL) OPTH DROPS OS SCH ×4 (10:46→22:15)
[2019-01-05] MEDS: NIFEdipine E.R. 30 MG TABLET (FP) PO SCH (10:46)
[2019-01-05] MEDS: PANTOPRAZOLE 40 MG TABLET (FP) PO SCH (10:46)
[2019-01-05] MEDS: BACITRACIN 15 GM TUBE TOPICAL OINTMENT TP SCH ×2 (10:46→22:15)
[2019-01-05] MEDS: APIXABAN 2.5 MG TABLET PO SCH ×2 (10:46→22:15)
[2019-01-05] MEDS: LIDOCAINE 5% TOPICAL PATCH TP SCH (10:47)
[2019-01-05] MEDS: PRENATAL VITAMINS W/ FOLIC ACID TABLET (FP) PO SCH (10:48)
[2019-01-05] MEDS: METHOCARBAMOL 500 MG TABLET PO PRN (10:49)
[2019-01-05] MEDS: LIDOCAINE PATCH REMOVAL MC SCH (11:46)
--- NOTE | 2019-01-05 15:17 | PN ---
S CIWA - CIWA Score Nausea/Vomitin-No Nausea/No Vomiting Muscle Tremors: 3 Anxiety: 3 Agitation: 2 Paroxysmal Sweats: 2 (And Alternating Hot / Cold Sensations.) Orientation: 2-Disoriented Date<2 days Tacttile Disturbances: 0-None Auditory Disturbances: 0-None Visual Disturbances: 1-Very Mild Sensitivity Headache: 0-None Present CIWA-Ar Total Score: 13 [facility] Progress Note (SOAP) Subjective: Tremors, Body Aches, Alternating Hot / Cold Sensations, Interrupted Sleep, Anxious. Objective: PATIENT A & O X 2 (UNCERTAIN ABOUT CURRENT DAY / DATE). PATIENT OBSERVED AMBULATING ON UNIT. IN NO ACUTE DISTRESS. 01/05/19 15:16 Vital Signs Temperature 97.6 F 01/05/19 09:53 Pulse Rate 83 01/05/19 09:53 Respiratory Rate 18 01/05/19 09:53 Blood Pressure 109/76 01/05/19 09:53 O2 Sat by Pulse Oximetry (%) Laboratory Tests 01/02/19 01/02/19 01/02/19 10:20 10:30 10:30 WBC 2.7 L RBC 3.52 L Hgb 12.2 Hct 36.4 MCV 103.2 H MCH 34.5 H MCHC 33.4 RDW 18.5 H Plt Count 267 D MPV 8.1 D PT with INR 11.80 INR 1.00 Sodium 138 Potassium 4.2 Chloride 103 Carbon Dioxide 25 Anion Gap 9 BUN 9.5 Creatinine 1.4 H Est GFR (CKD-EPI)AfAm 62.84 Est GFR (CKD-EPI)NonAf 54.22 Random Glucose 68 L Calcium 8.5 Total Bilirubin 0.4 AST 38 H ALT 25 Alkaline Phosphatase 118 H Total Protein 7.0 Albumin 3.3 L Urine Color Urine Appearance Urine pH Ur Specific [place] Urine Protein Urine Glucose (UA) Urine Ketones Urine Blood Urine Nitrite Urine Bilirubin Urine Urobilinogen Ur Leukocyte Esterase RPR Titer 01/02/19 01/02/19 10:30 19:40 WBC RBC Hgb Hct MCV MCH MCHC RDW Plt Count MPV PT with INR INR Sodium Potassium Chloride Carbon Dioxide Anion Gap BUN Creatinine Est GFR (CKD-EPI)AfAm Est GFR (CKD-EPI)NonAf Random Glucose Calcium Total Bilirubin AST ALT Alkaline Phosphatase Total Protein Albumin Urine Color Yellow Urine Appearance Clear Urine pH 5.0 D Ur Specific [place] 1.008 L Urine Protein Negative Urine Glucose (UA) Negative Urine Ketones Negative Urine Blood Negative Urine Nitrite Negative Urine Bilirubin Negative Urine Urobilinogen 0.2 Ur Leukocyte Esterase Negative RPR Titer Nonreactive LABS NOTED. RESULTS OF DETOX ADMISSION QFT /TB TEST PENDING. 01/05/19 15:17 Assessment: 01/05/19 15:17 WITHDRAWAL SYMPTOMS. LEUKOPENIA. AZOTEMIA.
[2019-01-05] MEDS: BISMUTH SUBSALICYLATE 524 MG/30 ML UD PO PRN (20:54)
[2019-01-05] MEDS: THIAMINE HCL 100 MG TABLET (FP) PO SCH (22:14)
[2019-01-05] MEDS: MELATONIN 5 MG TABLETS PO PRN (22:15)
[2019-01-06] MEDS: METHOCARBAMOL 500 MG TABLET PO PRN ×2 (06:07→16:54)
[2019-01-06] MEDS: ACETAMINOPHEN 325 MG TABLET (FP) PO PRN (06:07)
[2019-01-06] MEDS: chlordiazePOXIDE HCL 10 MG CAPSULE PO SCH ×2 (06:08→16:53)
[2019-01-06] MEDS: PRENATAL VITAMINS W/ FOLIC ACID TABLET (FP) PO SCH (10:11)
[2019-01-06] MEDS: PANTOPRAZOLE 40 MG TABLET (FP) PO SCH (10:11)
[2019-01-06] MEDS: NIFEdipine E.R. 30 MG TABLET (FP) PO SCH (10:11)
[2019-01-06] MEDS: APIXABAN 2.5 MG TABLET PO SCH ×2 (10:12→22:16)
[2019-01-06] MEDS: LIDOCAINE 5% TOPICAL PATCH TP SCH (10:12)
[2019-01-06] MEDS: BACITRACIN 15 GM TUBE TOPICAL OINTMENT TP SCH ×2 (10:12→22:17)
[2019-01-06] MEDS: ARTIFICIAL TEARS (POLYVINYL ALCOHOL) OPTH DROPS OS SCH ×4 (10:12→22:16)
[2019-01-06] MEDS: LIDOCAINE PATCH REMOVAL MC SCH (10:13)
[2019-01-06] MEDS: hydrOXYzine HCL 25 MG TABLET (FP) PO PRN ×2 (10:14→22:17)
--- NOTE | 2019-01-06 11:02 | PN ---
[facility] CIWA - CIWA Score Nausea/Vomitin-No Nausea/No Vomiting Muscle Tremors: 3 Anxiety: 1-Mildly Anxious Agitation: 3 Paroxysmal Sweats: 2 Orientation: 0-Oriented Tacttile Disturbances: 0-None Auditory Disturbances: 0-None Visual Disturbances: 0-None Headache: 0-None Present CIWA-Ar Total Score: 9 S Progress Note (SOAP) Subjective: 58 years old male admitted on 01/02/19 for acute alcohol withdrawal sx management docin well with libirum detox regimen mild tremor no headache tolerate food and fluid well ambulating on hallway hesitate to discuss aftercare with staff Objective: 01/06/19 11:00 Vital Signs Temperature 97.1 F L 01/06/19 09:35 Pulse Rate 95 H 01/06/19 09:35 Respiratory Rate 18 01/06/19 09:35 Blood Pressure 114/82 01/06/19 09:35 O2 Sat by Pulse Oximetry (%) Laboratory Last Values WBC 2.7 K/mm3 (4.0-10.0) L 01/02/19 10:30 RBC 3.52 M/mm3 (4.00-5.60) L 01/02/19 10:30 Hgb 12.2 GM/dL (11.7-16.9) 01/02/19 10:30 Hct 36.4 % (35.4-49) 01/02/19 10:30 MCV 103.2 fl (80-96) H 01/02/19 10:30 MCH 34.5 pg (25.7-33.7) H 01/02/19 10:30 MCHC 33.4 g/dl (32.0-35.9) 01/02/19 10:30 RDW 18.5 % (11.9-15.9) H 01/02/19 10:30 Plt Count 267 K/MM3 (134-434) D 01/02/19 10:30 MPV 8.1 fl (7.5-11.1) D 01/02/19 10:30 PT with INR 11.80 SEC (9.7-13.0) 01/02/19 10:20 INR 1.00 (0.83-1.09) 01/02/19 10:20 Sodium 138 mmol/L (136-145) 01/02/19 10:30 Potassium 4.2 mmol/L (3.5-5.1) 01/02/19 10:30 Chloride 103 mmol/L (98-107) 01/02/19 10:30 Carbon Dioxide 25 mmol/L (21-32) 01/02/19 10:30 Anion Gap 9 MMOL/L (8-16) 01/02/19 10:30 BUN 9.5 mg/dL (7-18) 01/02/19 10:30 Creatinine 1.4 mg/dL (0.55-1.3) H 01/02/19 10:30 Est GFR (CKD-EPI)AfAm 62.84 01/02/19 10:30 Est GFR (CKD-EPI)NonAf 54.22 01/02/19 10:30 Random Glucose 68 mg/dL (74-106) L 01/02/19 10:30 Calcium 8.5 mg/dL (8.5-10.1) 01/02/19 10:30 Total Bilirubin 0.4 mg/dL (0.2-1) 01/02/19 10:30 AST 38 U/L (15-37) H 01/02/19 10:30 ALT 25 U/L (13-61) 01/02/19 10:30 Alkaline Phosphatase 118 U/L (45-117) H 01/02/19 10:30 Total Protein 7.0 g/dl (6.4-8.2) 01/02/19 10:30 Albumin 3.3 g/dl (3.4-5.0) L 01/02/19 10:30 Urine Color Yellow 01/02/19 19:40 Urine Appearance Clear 01/02/19 19:40 Urine pH 5.0 (5.0-8.0) D 01/02/19 19:40 Ur Specific [employer] 1.008 (1.010-1.035) L 01/02/19 19:40 Urine Protein Negative (NEGATIVE) 01/02/19 19:40 Urine Glucose (UA) Negative (NEGATIVE) 01/02/19 19:40 Urine Ketones Negative (NEGATIVE) 01/02/19 19:40 Urine Blood Negative (NEGATIVE) 01/02/19 19:40 Urine Nitrite Negative (NEGATIVE) 01/02/19 19:40 Urine Bilirubin Negative (NEGATIVE) 01/02/19 19:40 Urine Urobilinogen 0.2 mg/dL (0.2-1.0) 01/02/19 19:40 Ur Leukocyte Esterase Negative (NEGATIVE) 01/02/19 19:40 RPR Titer Nonreactive (NONREACTIVE) 01/02/19 10:30 TB (QFT) Incubation (.) 01/02/19 10:30 TB Test (QFT) Nil 0.06 IU/mL (.) 01/02/19 10:30 TB Test (QFT) Mitogen 1.78 IU/mL (.) 01/02/19 10:30 TB Test (QFT) Antigen 0.05 IU/mL (.) 01/02/19 10:30 TB Test (QFT) Negative (Negative) 01/02/19 10:30 TB Positive Criteria (.) 01/02/19 10:30 lab noted low wbc patient agrees to bringing in lab report to primary care provider for follow up 01/06/19 11:01 Assessment: 01/06/19 11:02 mild alcohol withdrawal sx Plan: continue librium detox
[2019-01-06] MEDS: BISMUTH SUBSALICYLATE 524 MG/30 ML UD PO PRN (20:34)
[2019-01-06] MEDS: THIAMINE HCL 100 MG TABLET (FP) PO SCH (22:16)
[2019-01-06] MEDS: MELATONIN 5 MG TABLETS PO PRN (22:17)
[2019-01-07] MEDS ORDERED: chlordiazePOXIDE HCL 10 MG CAPSULE PO ONE (05:00)
[2019-01-07] MEDS: METHOCARBAMOL 500 MG TABLET PO PRN ×2 (05:26→15:19)
[2019-01-07] MEDS: ACETAMINOPHEN 325 MG TABLET (FP) PO PRN (05:26)
[2019-01-07] MEDS: ARTIFICIAL TEARS (POLYVINYL ALCOHOL) OPTH DROPS OS SCH ×2 (10:12→13:59)
[2019-01-07] MEDS: PRENATAL VITAMINS W/ FOLIC ACID TABLET (FP) PO SCH (10:13)
[2019-01-07] MEDS: LIDOCAINE 5% TOPICAL PATCH TP SCH (10:13)
[2019-01-07] MEDS: PANTOPRAZOLE 40 MG TABLET (FP) PO SCH (10:13)
[2019-01-07] MEDS: NIFEdipine E.R. 30 MG TABLET (FP) PO SCH (10:13)
[2019-01-07] MEDS: APIXABAN 2.5 MG TABLET PO SCH (10:13)
[2019-01-07] MEDS: BACITRACIN 15 GM TUBE TOPICAL OINTMENT TP SCH (10:14)
[2019-01-07] MEDS: hydrOXYzine HCL 25 MG TABLET (FP) PO PRN (10:15)
[2019-01-07] MEDS: LIDOCAINE PATCH REMOVAL MC SCH (10:55)
[2019-01-07] MEDS: BISMUTH SUBSALICYLATE 524 MG/30 ML UD PO PRN (12:23)
[2019-01-07 13:31] VITALS: BP 124/89; PULSE 85; TEMP 97.6
--- NOTE | 2019-01-07 13:42 | DS ---
[facility] Detox Discharge Summary Admission Date: 01/02/19 Discharge Date: 01/07/19 - History Present History: Alcohol Dependence Additional Comments: 58 years old male admitted on 01/02/19 for acute alcohol withdrawal sx management doing well with libriium detox regimen no complication throughout the detox stay alert oriented x 3 S1S2 Regular clear lung bilaterally aftercare revelation - Physical Exam Results Vital Signs: Vital Signs Temperature 97.6 F 01/07/19 13:31 Pulse Rate 85 01/07/19 13:31 Respiratory Rate 18 01/07/19 13:31 Blood Pressure 124/89 01/07/19 13:31 O2 Sat by Pulse Oximetry (%) Pertinent Admission Physical Exam Findings: alcohol withdrawal sx Laboratory Last Values WBC 2.7 K/mm3 (4.0-10.0) L 01/02/19 10:30 RBC 3.52 M/mm3 (4.00-5.60) L 01/02/19 10:30 Hgb 12.2 GM/dL (11.7-16.9) 01/02/19 10:30 Hct 36.4 % (35.4-49) 01/02/19 10:30 MCV 103.2 fl (80-96) H 01/02/19 10:30 MCH 34.5 pg (25.7-33.7) H 01/02/19 10:30 MCHC 33.4 g/dl (32.0-35.9) 01/02/19 10:30 RDW 18.5 % (11.9-15.9) H 01/02/19 10:30 Plt Count 267 K/MM3 (134-434) D 01/02/19 10:30 MPV 8.1 fl (7.5-11.1) D 01/02/19 10:30 PT with INR 11.80 SEC (9.7-13.0) 01/02/19 10:20 INR 1.00 (0.83-1.09) 01/02/19 10:20 Sodium 138 mmol/L (136-145) 01/02/19 10:30 Potassium 4.2 mmol/L (3.5-5.1) 01/02/19 10:30 Chloride 103 mmol/L (98-107) 01/02/19 10:30 Carbon Dioxide 25 mmol/L (21-32) 01/02/19 10:30 Anion Gap 9 MMOL/L (8-16) 01/02/19 10:30 BUN 9.5 mg/dL (7-18) 01/02/19 10:30 Creatinine 1.4 mg/dL (0.55-1.3) H 01/02/19 10:30 Est GFR (CKD-EPI)AfAm 62.84 01/02/19 10:30 Est GFR (CKD-EPI)NonAf 54.22 01/02/19 10:30 Random Glucose 68 mg/dL (74-106) L 01/02/19 10:30 Calcium 8.5 mg/dL (8.5-10.1) 01/02/19 10:30 Total Bilirubin 0.4 mg/dL (0.2-1) 01/02/19 10:30 AST 38 U/L (15-37) H 01/02/19 10:30 ALT 25 U/L (13-61) 01/02/19 10:30 Alkaline Phosphatase 118 U/L (45-117) H 01/02/19 10:30 Total Protein 7.0 g/dl (6.4-8.2) 01/02/19 10:30 Albumin 3.3 g/dl (3.4-5.0) L 01/02/19 10:30 Urine Color Yellow 01/02/19 19:40 Urine Appearance Clear 01/02/19 19:40 Urine pH 5.0 (5.0-8.0) D 01/02/19 19:40 Ur Specific [place] 1.008 (1.010-1.035) L 01/02/19 19:40 Urine Protein Negative (NEGATIVE) 01/02/19 19:40 Urine Glucose (UA) Negative (NEGATIVE) 01/02/19 19:40 Urine Ketones Negative (NEGATIVE) 01/02/19 19:40 Urine Blood Negative (NEGATIVE) 01/02/19 19:40 Urine Nitrite Negative (NEGATIVE) 01/02/19 19:40 Urine Bilirubin Negative (NEGATIVE) 01/02/19 19:40 Urine Urobilinogen 0.2 mg/dL (0.2-1.0) 01/02/19 19:40 Ur Leukocyte Esterase Negative (NEGATIVE) 01/02/19 19:40 RPR Titer Nonreactive (NONREACTIVE) 01/02/19 10:30 TB (QFT) Incubation (.) 01/02/19 10:30 TB Test (QFT) Nil 0.06 IU/mL (.) 01/02/19 10:30 TB Test (QFT) Mitogen 1.78 IU/mL (.) 01/02/19 10:30 TB Test (QFT) Antigen 0.05 IU/mL (.) 01/02/19 10:30 TB Test (QFT) Negative (Negative) 01/02/19 10:30 TB Positive Criteria (.) 01/02/19 10:30 lab noted low wbc - Treatment Hospital Course: Detox Protocol Followed, Detoxed Safely, Responded well, Discharged Condition Good, Rehab Referral Accepted Patient has Accepted a Rehab Referral to: [email or web address] - Medication Discharge Medications: Ambulatory Orders Omeprazole 40 mg PO HS PRN 07/22/16 Folic Acid 1 mg PO DAILY 01/02/19 Apixaban [Eliquis] 2.5 mg PO BID #60 tablet 01/06/19 Nifedipine [Procardia Xl] 30 mg PO DAILY #30 tab.er.[id number] 01/06/19 - Diagnosis (1) Leukopenia Current Visit: Yes Status: Chronic Qualifiers: Leukopenia type: other Qualified Code(s): D72.818 - Other decreased white blood cell count (2) Alcohol dependence with uncomplicated withdrawal Current Visit: Yes Status: Acute (3) Psoriasis Current Visit: Yes Status: Chronic (4) GERD (gastroesophageal reflux disease) Current Visit: Yes Status: Chronic Qualifiers: Esophagitis presence: without esophagitis Qualified Code(s): K21.9 - Gastro -esophageal reflux disease without esophagitis (5) Hypertension Current Visit: Yes Status: Chronic Qualifiers: Hypertension type: essential hypertension Qualified Code(s): I10 - Essential (primary) hypertension (6) History of DVT (deep vein thrombosis) Current Visit: Yes Status: Chronic - AMA Did Patient Leave Against Medical Advice: No
== END 2019-01-07 15:34 | disposition other institution (70) | DRG 773 ==
LOC: YASAS 08:24 → Y3N 11:59
PROVIDERS: ADMIT Surgery; ATTEND Surgery
PROC: HZ2ZZZZ Detoxification Services for Substance Abuse Treatment (ICD-10-PCS; principal; 2019-01-02)
DX: F10.230 Alcohol dependence with withdrawal, uncomplicated (principal); F11.10 Opioid abuse, uncomplicated; I10 Essential (primary) hypertension; D72.818 Other decreased white blood cell count; L30.9 Dermatitis, unspecified; K21.9 Gastro-esophageal reflux disease without esophagitis; R79.89 Other specified abnormal findings of blood chemistry; M54.5 Low back pain; G89.29 Other chronic pain; M25.551 Pain in right hip; M25.552 Pain in left hip; Z86.718 Personal history of other venous thrombosis and embolism; Z86.711 Personal history of pulmonary embolism
CPT/HCPCS: 36415; 80053; 81003; 85027; 85610; 86480; 86593; Q0162

== ENCOUNTER 2019-01-07 15:43 | Inpatient (IN) | payer OTHER ==
--- NOTE | 2019-01-07 13:48 | HP ---
[facility] Rehab Assess/Revision - Admission History Admitted to Rehab from: [facility] Date of Admission to Rehab: 01/07/19 - Findings Detox History & Physical reviewed: Yes Concur with findings: Yes Comments/Additional Findings: transferred from detox to rehab admission as per protocol Inpatient Rehab Admission - Rehab Decision to Admit Inpatient rehab admission?: Yes - Initial Determination Are CD services needed?: Yes Free of communicable disease: Yes Not in need of hospitalization: Yes - Rehab Admission Criteria Previous failed treatment: Yes Poor recovery environment: Yes Comorbidities: Yes Lacks judgement: No Patient is meeting Inpatient Rehab admission criteria:: Yes
[~2019-01-07 15:43] MED LIST: ACETAMINOPHEN 325 MG TABLET (FP) PO PRN; MAGNESIUM CITRATE 300 ML BOTTLE PO PRN; MAGNESIUM HYDROX 2400MG/30ML ORAL SUSPENSION 30 ML CUP PO PRN; MENTHOL/PHENOL 1 EACH UD MM PRN; P-EPHED 60MG/TRIPROLIDI 2.5MG TABLET PO PRN
[2019-01-07] MEDS: ARTIFICIAL TEARS (POLYVINYL ALCOHOL) OPTH DROPS OU SCH ×2 (18:50→21:09)
[2019-01-07] MEDS: THIAMINE HCL 100 MG TABLET (FP) PO SCH (21:08)
[2019-01-07] MEDS: APIXABAN 2.5 MG TABLET PO SCH (21:09)
[2019-01-07] MEDS: MELATONIN 5 MG TABLETS PO PRN (21:10)
[2019-01-07] MEDS: RANITIDINE HCL 150 MG TABLET (FP) PO SCH (21:10)
[2019-01-08] MEDS: PRENATAL VITAMINS W/ FOLIC ACID TABLET (FP) PO SCH (10:06)
[2019-01-08] MEDS: RANITIDINE HCL 150 MG TABLET (FP) PO SCH ×2 (10:06→20:59)
[2019-01-08] MEDS: LIDOCAINE 5% TOPICAL PATCH TP SCH (10:06)
[2019-01-08] MEDS: NIFEdipine E.R. 30 MG TABLET (FP) PO SCH (10:06)
[2019-01-08] MEDS: APIXABAN 2.5 MG TABLET PO SCH ×2 (10:07→20:59)
[2019-01-08] MEDS: ARTIFICIAL TEARS (POLYVINYL ALCOHOL) OPTH DROPS OU SCH ×5 (10:07→20:59)
[2019-01-08] MEDS ORDERED: PNEUMOCOCCAL 23 VACCINE 0.5 ML VIAL IM ONE (12:00)
[2019-01-08] MEDS ORDERED: PNEUMOC 13-VAL CONJ-DIP CRM/PF 0.5 ML DISP.SYRIN IM ONE (12:00)
[2019-01-08] MEDS: guaiFENesin 200 MG/10 ML 10 ML UNIT-DOSE CUPS PO PRN (15:59)
[2019-01-08] MEDS: LIDOCAINE PATCH REMOVAL MC SCH (20:59)
[2019-01-08] MEDS: THIAMINE HCL 100 MG TABLET (FP) PO SCH (20:59)
[2019-01-08] MEDS: MELATONIN 5 MG TABLETS PO PRN (21:00)
[2019-01-08] MEDS: METHOCARBAMOL 500 MG TABLET PO PRN (21:01)
[2019-01-09] MEDS: PRENATAL VITAMINS W/ FOLIC ACID TABLET (FP) PO SCH (09:47)
[2019-01-09] MEDS: RANITIDINE HCL 150 MG TABLET (FP) PO SCH ×2 (09:47→21:05)
[2019-01-09] MEDS: NIFEdipine E.R. 30 MG TABLET (FP) PO SCH (09:47)
[2019-01-09] MEDS: LIDOCAINE 5% TOPICAL PATCH TP SCH (09:48)
[2019-01-09] MEDS: APIXABAN 2.5 MG TABLET PO SCH ×2 (09:49→21:05)
[2019-01-09] MEDS: METHOCARBAMOL 500 MG TABLET PO PRN (09:49)
[2019-01-09] MEDS: ARTIFICIAL TEARS (POLYVINYL ALCOHOL) OPTH DROPS OU SCH ×4 (09:50→21:05)
[2019-01-09] MEDS: guaiFENesin 200 MG/10 ML 10 ML UNIT-DOSE CUPS PO PRN (09:51)
[2019-01-09] MEDS ORDERED: hydrOXYzine PAMOATE 50 MG CAPSULE (FP) PO PRN (11:18)
--- NOTE | 2019-01-09 11:35 | PN ---
S Progress Note Note: Pt reports psych hx and requets psych eval for chronic insomnia and anxiety disorder. Reports he sees a psychiatrist at [facility] in [place]. Reports has taken Trazodone or Seroquel in the past but prefers the latter. Patient is alert o x 3. ambulating with a cane. Admitted from [address] [place] [address] on 01/07/19. Denies s/h/i. Vital Signs - 24 hr 01/09/19 01/09/19 01/09/19 00:30 03:30 06:59 Temperature 97.6 F Pulse Rate 101 H Respiratory 18 18 18 Rate Blood Pressure 130/97 01/09/19 10:00 Temperature Pulse Rate 95 H Respiratory Rate Blood Pressure 113/68 A/P Hx Anxiety Chronic Insomnia Psych consult ordered for follow up.
--- NOTE | 2019-01-09 14:56 | CONSULT ---
[facility] Psychiatric Consult - Data Date of interview: 01/09/19 Admission source: [facility] Identifying data: Patient is a 58 year old single male, without children, unemployed, domiciled, and is suppported by [facility]. This is one of multiple admissions for patient. Patient admitted to for alcohol and opiate dependence. Substance Abuse History: Smoking Cessation. Smoking history: Never smoked. Have you smoked in the past 12 months: No. Aproximately how many cigarettes per day: 0. Cigars Per Day: 0. Hx Chewing Tobacco Use: No. - Substance & Tx. History. Hx Alcohol Use: Yes. Hx Substance Use: Yes. Substance Use Type: Alcohol. Hx Substance Use Treatment: Yes ([facility] 12/15/18 to 12/20/18 ). - Substances abused. Alcohol. Substance route: Oral. Frequency: Daily. Amount used: 5 PINTS OF VODKA. Age of first use: 16. Date of last use: . Heroin. Substance route: Inhalation. Frequency: 3-6 times per week. Amount used: 2 BAGS (it's off an on, not everyday). Age of first use: 16 (2-3 times per week). Date of last use: 12/12/18 (urine tox negative for opiates) Medical History: hypertension, GERD,hiatus hernia, mild renal insufficieny, IVP Filter/ Pilocyst removed in 2005, shoulder left rotator cuff repair at age 46 Psychiatric History: Patient's first psychiatric contact was two years ago at [facility] to address anxiety/ insomnia and was treated with psychotropic medications. Diagnoses of anxiety disorder. He then moved to the [facility] and saw another psychiatrist but was disappointed with the treatment provided which resulted in patient seeing the psychiatrist in [place] again. Patient reports noncompliance to outpatient treatment X3 months. He reports being tried on klonopin, vistaril, gabapenin and buspar. Patient denies h/o psychiatric hospitalizations and suicide attempt. At present, patient reports anxiety and insomnia. Physical/Sexual Abuse/Trauma History: denies. Mental Status Exam - Mental Status Exam Alert and Oriented to: Time, Place, Person Cognitive Function: Good Patient Appearance: Well Groomed Mood: Euthymic Affect: Mood Congruent Patient Behavior: Cooperative Speech Pattern: Appropriate Voice Loudness: Normal Thought Process: Goal Oriented Thought Disorder: Not Present Hallucinations: Denies Suicidal Ideation: Denies Homicidal Ideation: Denies Insight/Judgement: Poor Sleep: Poorly Appetite: Fair Muscle strength/Tone: Normal Gait/Station: Normal Psychiatric Findings - Problem List ([place] 1, 2,3) (1) Alcohol dependence Current Visit: Yes Status: Acute (2) Anxiety disorder Current Visit: Yes Status: Chronic Comment: Per self-report (3) Heroin abuse Current Visit: Yes Status: Chronic (4) Substance-induced sleep disorder Current Visit: Yes Status: Acute - Initial Treatment Plan Initial Treatment Plan: Psychoeducation provided. Rehab in progress. Will order Gabapentin 300mg BID @1000,1700 + Seroquel 50mg HS. Benefits and side effects discussed. Verbal consent given.
[2019-01-09] MEDS: GABAPENTIN 300 MG CAPSULE (FP) PO SCH (17:04)
[2019-01-09] MEDS: QUEtiapine FUMARATE 50 MG TABLET PO SCH (21:05)
[2019-01-09] MEDS: THIAMINE HCL 100 MG TABLET (FP) PO SCH (21:05)
[2019-01-09] MEDS: LIDOCAINE PATCH REMOVAL MC SCH (21:06)
[2019-01-10] MEDS: PRENATAL VITAMINS W/ FOLIC ACID TABLET (FP) PO SCH (09:52)
[2019-01-10] MEDS: NIFEdipine E.R. 30 MG TABLET (FP) PO SCH (09:52)
[2019-01-10] MEDS: RANITIDINE HCL 150 MG TABLET (FP) PO SCH ×2 (09:52→21:03)
[2019-01-10] MEDS: GABAPENTIN 300 MG CAPSULE (FP) PO SCH ×2 (09:52→17:10)
[2019-01-10] MEDS: ARTIFICIAL TEARS (POLYVINYL ALCOHOL) OPTH DROPS OU SCH ×4 (09:52→21:05)
[2019-01-10] MEDS: LIDOCAINE 5% TOPICAL PATCH TP SCH (09:53)
[2019-01-10] MEDS: APIXABAN 2.5 MG TABLET PO SCH ×2 (09:55→21:03)
[2019-01-10] MEDS: METHOCARBAMOL 500 MG TABLET PO PRN ×2 (09:59→21:05)
[2019-01-10] MEDS: QUEtiapine FUMARATE 50 MG TABLET PO SCH (21:03)
[2019-01-10] MEDS: THIAMINE HCL 100 MG TABLET (FP) PO SCH (21:03)
[2019-01-10] MEDS: LIDOCAINE PATCH REMOVAL MC SCH (21:05)
[2019-01-10] MEDS: MAG HYDROX/AL HYDROX/SIMETH 30 ML UNIT-DOSE CUP PO PRN (21:07)
[2019-01-11] MEDS: APIXABAN 2.5 MG TABLET PO SCH ×2 (09:54→22:55)
[2019-01-11] MEDS: ARTIFICIAL TEARS (POLYVINYL ALCOHOL) OPTH DROPS OU SCH ×4 (09:54→22:55)
[2019-01-11] MEDS: PRENATAL VITAMINS W/ FOLIC ACID TABLET (FP) PO SCH (09:55)
[2019-01-11] MEDS: NIFEdipine E.R. 30 MG TABLET (FP) PO SCH (09:55)
[2019-01-11] MEDS: LIDOCAINE 5% TOPICAL PATCH TP SCH (09:55)
[2019-01-11] MEDS: RANITIDINE HCL 150 MG TABLET (FP) PO SCH ×2 (09:55→21:09)
[2019-01-11] MEDS: METHOCARBAMOL 500 MG TABLET PO PRN ×2 (09:55→21:11)
[2019-01-11] MEDS: GABAPENTIN 300 MG CAPSULE (FP) PO SCH ×2 (09:56→17:07)
[2019-01-11] MEDS: guaiFENesin 200 MG/10 ML 10 ML UNIT-DOSE CUPS PO PRN (14:39)
[2019-01-11] MEDS: THIAMINE HCL 100 MG TABLET (FP) PO SCH (21:09)
[2019-01-11] MEDS: QUEtiapine FUMARATE 50 MG TABLET PO SCH (21:09)
[2019-01-11] MEDS: LIDOCAINE PATCH REMOVAL MC SCH (22:57)
[2019-01-12] MEDS: PRENATAL VITAMINS W/ FOLIC ACID TABLET (FP) PO SCH (09:33)
[2019-01-12] MEDS: APIXABAN 2.5 MG TABLET PO SCH ×2 (09:33→21:59)
[2019-01-12] MEDS: NIFEdipine E.R. 30 MG TABLET (FP) PO SCH (09:33)
[2019-01-12] MEDS: METHOCARBAMOL 500 MG TABLET PO PRN ×2 (09:33→22:00)
[2019-01-12] MEDS: RANITIDINE HCL 150 MG TABLET (FP) PO SCH ×2 (09:33→21:57)
[2019-01-12] MEDS: ARTIFICIAL TEARS (POLYVINYL ALCOHOL) OPTH DROPS OU SCH ×4 (09:33→23:14)
[2019-01-12] MEDS: LIDOCAINE 5% TOPICAL PATCH TP SCH (09:33)
[2019-01-12] MEDS: GABAPENTIN 300 MG CAPSULE (FP) PO SCH ×2 (09:34→17:44)
[2019-01-12] MEDS: MAG HYDROX/AL HYDROX/SIMETH 30 ML UNIT-DOSE CUP PO PRN (19:11)
[2019-01-12] MEDS: THIAMINE HCL 100 MG TABLET (FP) PO SCH (21:57)
[2019-01-12] MEDS: QUEtiapine FUMARATE 50 MG TABLET PO SCH (21:58)
[2019-01-12] MEDS: LIDOCAINE PATCH REMOVAL MC SCH (21:58)
[2019-01-13] MEDS: ARTIFICIAL TEARS (POLYVINYL ALCOHOL) OPTH DROPS OU SCH ×4 (09:32→21:05)
[2019-01-13] MEDS: APIXABAN 2.5 MG TABLET PO SCH ×2 (09:33→21:05)
[2019-01-13] MEDS: NIFEdipine E.R. 30 MG TABLET (FP) PO SCH (09:33)
[2019-01-13] MEDS: PRENATAL VITAMINS W/ FOLIC ACID TABLET (FP) PO SCH (09:33)
[2019-01-13] MEDS: RANITIDINE HCL 150 MG TABLET (FP) PO SCH ×2 (09:33→21:05)
[2019-01-13] MEDS: METHOCARBAMOL 500 MG TABLET PO PRN ×2 (09:33→17:47)
[2019-01-13] MEDS: GABAPENTIN 300 MG CAPSULE (FP) PO SCH ×2 (09:34→17:30)
[2019-01-13] MEDS: LIDOCAINE 5% TOPICAL PATCH TP SCH (09:34)
[2019-01-13] MEDS: guaiFENesin 200 MG/10 ML 10 ML UNIT-DOSE CUPS PO PRN (18:03)
[2019-01-13] MEDS: MAG HYDROX/AL HYDROX/SIMETH 30 ML UNIT-DOSE CUP PO PRN (19:04)
[2019-01-13] MEDS: THIAMINE HCL 100 MG TABLET (FP) PO SCH (21:05)
[2019-01-13] MEDS: QUEtiapine FUMARATE 50 MG TABLET PO SCH (21:05)
[2019-01-13] MEDS: LIDOCAINE PATCH REMOVAL MC SCH (21:06)
[2019-01-14] MEDS: PRENATAL VITAMINS W/ FOLIC ACID TABLET (FP) PO SCH (09:40)
[2019-01-14] MEDS: RANITIDINE HCL 150 MG TABLET (FP) PO SCH (09:40)
[2019-01-14] MEDS: ARTIFICIAL TEARS (POLYVINYL ALCOHOL) OPTH DROPS OU SCH ×4 (09:40→21:59)
[2019-01-14] MEDS: LIDOCAINE 5% TOPICAL PATCH TP SCH (09:40)
[2019-01-14] MEDS: APIXABAN 2.5 MG TABLET PO SCH ×2 (09:40→21:24)
[2019-01-14] MEDS: GABAPENTIN 300 MG CAPSULE (FP) PO SCH ×2 (09:40→16:45)
[2019-01-14] MEDS: NIFEdipine E.R. 30 MG TABLET (FP) PO SCH (09:40)
[2019-01-14] MEDS: METHOCARBAMOL 500 MG TABLET PO PRN (09:41)
[2019-01-14] MEDS: PANTOPRAZOLE 40 MG TABLET (FP) PO SCH (10:11)
[2019-01-14] MEDS: LOPERAMIDE HCL 2 MG CAPSULE PO PRN ×2 (10:11→16:45)
--- NOTE | 2019-01-14 11:17 | PN ---
S Progress Note Note: Patient presents c/o acid reflux. States he has hx of hiatal hernia and treated with Omeprazole 40mg daily while at home. Patient denies nausea and vomiting. Patient states zantac ineffective. Vital Signs Temperature 97.4 F L 01/14/19 06:58 Pulse Rate 65 01/14/19 06:58 Respiratory Rate 18 01/14/19 06:58 Blood Pressure 106/71 01/14/19 06:58 O2 Sat by Pulse Oximetry (%) PE: alert and oriented x 3 skin warm and dry +perrla, eoms intact bl gi nt, nd ext full rom, amb ad lei A/P: gerd D/C zantac will start protonix 40mg daily continue to monitor clinically
[2019-01-14] MEDS: MAG HYDROX/AL HYDROX/SIMETH 30 ML UNIT-DOSE CUP PO PRN ×2 (12:41→18:05)
[2019-01-14] MEDS ORDERED: ONDANSETRON *ODT* 4 MG TABLET SL PRN (13:59)
[2019-01-14] MEDS: THIAMINE HCL 100 MG TABLET (FP) PO SCH (21:24)
[2019-01-14] MEDS: QUEtiapine FUMARATE 50 MG TABLET PO SCH (21:24)
[2019-01-14] MEDS: LIDOCAINE PATCH REMOVAL MC SCH (22:02)
[2019-01-15] MEDS: LOPERAMIDE HCL 2 MG CAPSULE PO PRN (01:02)
[2019-01-15] MEDS: MAG HYDROX/AL HYDROX/SIMETH 30 ML UNIT-DOSE CUP PO PRN (01:03)
[2019-01-15] MEDS: LIDOCAINE 5% TOPICAL PATCH TP SCH (09:51)
[2019-01-15] MEDS: ARTIFICIAL TEARS (POLYVINYL ALCOHOL) OPTH DROPS OU SCH ×4 (09:51→21:58)
[2019-01-15] MEDS: PRENATAL VITAMINS W/ FOLIC ACID TABLET (FP) PO SCH (09:52)
[2019-01-15] MEDS: PANTOPRAZOLE 40 MG TABLET (FP) PO SCH (09:52)
[2019-01-15] MEDS: GABAPENTIN 300 MG CAPSULE (FP) PO SCH ×2 (09:52→17:08)
[2019-01-15] MEDS: APIXABAN 2.5 MG TABLET PO SCH ×2 (09:52→21:04)
[2019-01-15] MEDS: NIFEdipine E.R. 30 MG TABLET (FP) PO SCH (09:52)
[2019-01-15] MEDS: METHOCARBAMOL 500 MG TABLET PO PRN ×2 (09:53→19:05)
--- NOTE | 2019-01-15 10:28 | PN ---
[facility] Progress Note Note: Pt complaints of increased gas- going for BM several times a day- usually watery stools. Started yesterday after breakfast- egg salad sandwich. Also passing gas. Using imodium. A bit better today O: Vital Signs - 24 hr 01/15/19 01/15/19 03:30 06:47 Temperature 98.1 F Pulse Rate 96 H Respiratory 18 18 Rate Blood Pressure 98/66 abd- no pain a/p: GI upset- likely due to food intake yesterday. symptomatic treatment- simethicone plenty of fluids limiting food intake to tolerated foods
[2019-01-15] MEDS: SIMETHICONE 80 MG TAB.CHEW (FP) PO PRN ×3 (13:06→21:07)
[2019-01-15] MEDS: QUEtiapine FUMARATE 50 MG TABLET PO SCH (21:04)
[2019-01-15] MEDS: THIAMINE HCL 100 MG TABLET (FP) PO SCH (21:04)
[2019-01-15] MEDS: LIDOCAINE PATCH REMOVAL MC SCH (21:58)
[2019-01-16] MEDS: METHOCARBAMOL 500 MG TABLET PO PRN ×2 (06:24→14:15)
[2019-01-16] MEDS: SIMETHICONE 80 MG TAB.CHEW (FP) PO PRN ×2 (06:24→14:16)
[2019-01-16] MEDS: NIFEdipine E.R. 30 MG TABLET (FP) PO SCH (09:39)
[2019-01-16] MEDS: LIDOCAINE 5% TOPICAL PATCH TP SCH (09:39)
[2019-01-16] MEDS: PANTOPRAZOLE 40 MG TABLET (FP) PO SCH (09:39)
[2019-01-16] MEDS: ARTIFICIAL TEARS (POLYVINYL ALCOHOL) OPTH DROPS OU SCH ×4 (09:39→21:07)
[2019-01-16] MEDS: PRENATAL VITAMINS W/ FOLIC ACID TABLET (FP) PO SCH (09:39)
[2019-01-16] MEDS: APIXABAN 2.5 MG TABLET PO SCH ×2 (09:39→21:06)
[2019-01-16] MEDS: GABAPENTIN 300 MG CAPSULE (FP) PO SCH ×2 (09:40→16:37)
[2019-01-16] MEDS: QUEtiapine FUMARATE 50 MG TABLET PO SCH (21:06)
[2019-01-16] MEDS: THIAMINE HCL 100 MG TABLET (FP) PO SCH (21:07)
[2019-01-16] MEDS: LIDOCAINE PATCH REMOVAL MC SCH (21:08)
[2019-01-16 21:55] VITALS: BMI 27.4
[2019-01-17] MEDS: METHOCARBAMOL 500 MG TABLET PO PRN (06:04)
[2019-01-17] MEDS: APIXABAN 2.5 MG TABLET PO SCH ×2 (09:49→21:06)
[2019-01-17] MEDS: ARTIFICIAL TEARS (POLYVINYL ALCOHOL) OPTH DROPS OU SCH ×4 (09:49→21:07)
[2019-01-17] MEDS: LIDOCAINE 5% TOPICAL PATCH TP SCH (09:50)
[2019-01-17] MEDS: PRENATAL VITAMINS W/ FOLIC ACID TABLET (FP) PO SCH (09:51)
[2019-01-17] MEDS: PANTOPRAZOLE 40 MG TABLET (FP) PO SCH (09:52)
[2019-01-17] MEDS: GABAPENTIN 300 MG CAPSULE (FP) PO SCH ×2 (09:52→16:41)
[2019-01-17] MEDS: NIFEdipine E.R. 30 MG TABLET (FP) PO SCH (09:53)
[2019-01-17] MEDS ORDERED: DIPHENOXYLATE 2.5/ATROPINE.025 1 COMBO TABLET PO ONE (11:53)
[2019-01-17] MEDS: QUEtiapine FUMARATE 50 MG TABLET PO SCH (21:06)
[2019-01-17] MEDS: THIAMINE HCL 100 MG TABLET (FP) PO SCH (21:06)
[2019-01-17] MEDS: LIDOCAINE PATCH REMOVAL MC SCH (21:07)
[2019-01-17] MEDS: SIMETHICONE 80 MG TAB.CHEW (FP) PO PRN (21:45)
[2019-01-18] MEDS: METHOCARBAMOL 500 MG TABLET PO PRN (06:39)
[2019-01-18] MEDS: PRENATAL VITAMINS W/ FOLIC ACID TABLET (FP) PO SCH (09:57)
[2019-01-18] MEDS: ARTIFICIAL TEARS (POLYVINYL ALCOHOL) OPTH DROPS OU SCH ×4 (09:57→21:04)
[2019-01-18] MEDS: PANTOPRAZOLE 40 MG TABLET (FP) PO SCH (09:58)
[2019-01-18] MEDS: APIXABAN 2.5 MG TABLET PO SCH ×2 (09:58→21:04)
[2019-01-18] MEDS: LIDOCAINE 5% TOPICAL PATCH TP SCH (09:58)
[2019-01-18] MEDS: NIFEdipine E.R. 30 MG TABLET (FP) PO SCH (09:58)
[2019-01-18] MEDS: GABAPENTIN 300 MG CAPSULE (FP) PO SCH ×2 (09:59→17:26)
[2019-01-18] MEDS ORDERED: DIPHENOXYLATE 2.5/ATROPINE.025 1 COMBO TABLET PO ONE (10:26)
--- NOTE | 2019-01-18 10:33 | PN ---
S Progress Note Note: Pt c/o frequent watery bowel movement x 4-5 days with no relief after imodium treatment. Pt denies nausea,vomiting, abdominal pain or fever. lomotil 1 tab po x 1 dose given yesterday. Pt and nurse reports soft unformed stool and pt requesting dose of lomotil. D/w pt will give one more dose of Lomotil today only and then monitor BM. Vital Signs (72 hours) 01/16/19 01/16/19 01/16/19 00:30 03:30 06:36 Temperature 97.5 F L Pulse Rate 99 H Respiratory 18 18 18 Rate Blood Pressure 123/97 01/16/19 01/16/19 01/17/19 10:00 21:55 03:30 Temperature Pulse Rate 89 89 Respiratory 18 Rate Blood Pressure 113/89 113/89 01/17/19 01/17/19 01/18/19 07:03 10:00 00:30 Temperature 97.5 F L Pulse Rate 97 H 93 H Respiratory 18 18 Rate Blood Pressure 124/82 126/86 01/18/19 01/18/19 03:30 06:48 Temperature 98.1 F Pulse Rate 93 H Respiratory 18 18 Rate Blood Pressure 86/62 L A/P Diarrhea D/W pt will give Lomotil 1 tab po once x 2(one was given yesterday and one to be given today). And Increase appropriate po fluids as tolerated, such as warm tea with no milk. D/W pt no diary products till sx resolves. And BRAT diet if diarrhea continues.
[2019-01-18] MEDS: QUEtiapine FUMARATE 50 MG TABLET PO SCH (21:03)
[2019-01-18] MEDS: THIAMINE HCL 100 MG TABLET (FP) PO SCH (21:04)
[2019-01-18] MEDS: LIDOCAINE PATCH REMOVAL MC SCH (21:05)
[2019-01-19] MEDS: METHOCARBAMOL 500 MG TABLET PO PRN ×2 (06:05→14:21)
[2019-01-19] MEDS: APIXABAN 2.5 MG TABLET PO SCH ×2 (09:37→21:05)
[2019-01-19] MEDS: NIFEdipine E.R. 30 MG TABLET (FP) PO SCH (09:37)
[2019-01-19] MEDS: PANTOPRAZOLE 40 MG TABLET (FP) PO SCH (09:37)
[2019-01-19] MEDS: PRENATAL VITAMINS W/ FOLIC ACID TABLET (FP) PO SCH (09:37)
[2019-01-19] MEDS: LIDOCAINE 5% TOPICAL PATCH TP SCH (09:38)
[2019-01-19] MEDS: GABAPENTIN 300 MG CAPSULE (FP) PO SCH ×2 (09:38→17:24)
[2019-01-19] MEDS: ARTIFICIAL TEARS (POLYVINYL ALCOHOL) OPTH DROPS OU SCH ×4 (09:38→21:04)
[2019-01-19] MEDS: THIAMINE HCL 100 MG TABLET (FP) PO SCH (21:04)
[2019-01-19] MEDS: QUEtiapine FUMARATE 50 MG TABLET PO SCH (21:04)
[2019-01-19] MEDS: LIDOCAINE PATCH REMOVAL MC SCH (21:05)
[2019-01-20] MEDS: METHOCARBAMOL 500 MG TABLET PO PRN ×2 (06:00→14:44)
[2019-01-20] MEDS: ARTIFICIAL TEARS (POLYVINYL ALCOHOL) OPTH DROPS OU SCH ×4 (09:54→21:12)
[2019-01-20] MEDS: PRENATAL VITAMINS W/ FOLIC ACID TABLET (FP) PO SCH (09:54)
[2019-01-20] MEDS: PANTOPRAZOLE 40 MG TABLET (FP) PO SCH (09:54)
[2019-01-20] MEDS: APIXABAN 2.5 MG TABLET PO SCH ×2 (09:54→21:11)
[2019-01-20] MEDS: NIFEdipine E.R. 30 MG TABLET (FP) PO SCH (09:54)
[2019-01-20] MEDS: LIDOCAINE 5% TOPICAL PATCH TP SCH (09:54)
[2019-01-20] MEDS: GABAPENTIN 300 MG CAPSULE (FP) PO SCH ×2 (09:55→17:27)
[2019-01-20] MEDS: THIAMINE HCL 100 MG TABLET (FP) PO SCH (21:11)
[2019-01-20] MEDS: QUEtiapine FUMARATE 50 MG TABLET PO SCH (21:11)
[2019-01-20] MEDS: LIDOCAINE PATCH REMOVAL MC SCH (21:12)
[2019-01-21] MEDS: METHOCARBAMOL 500 MG TABLET PO PRN ×2 (06:13→14:17)
[2019-01-21] MEDS: APIXABAN 2.5 MG TABLET PO SCH ×2 (10:02→21:09)
[2019-01-21] MEDS: PANTOPRAZOLE 40 MG TABLET (FP) PO SCH (10:02)
[2019-01-21] MEDS: PRENATAL VITAMINS W/ FOLIC ACID TABLET (FP) PO SCH (10:02)
[2019-01-21] MEDS: LIDOCAINE 5% TOPICAL PATCH TP SCH (10:02)
[2019-01-21] MEDS: ARTIFICIAL TEARS (POLYVINYL ALCOHOL) OPTH DROPS OU SCH ×4 (10:03→21:10)
[2019-01-21] MEDS: GABAPENTIN 300 MG CAPSULE (FP) PO SCH ×2 (10:04→16:52)
[2019-01-21] MEDS: NIFEdipine E.R. 30 MG TABLET (FP) PO SCH (10:04)
--- NOTE | 2019-01-21 13:32 | PN ---
S Progress Note Note: Patient is scheduled for discharge tomorrow. Scripts for 30 days supply of medications(Gabapentin 300 mg/bid, Seroquel 50 mg/hs) will be electronically transmitted to [facility] at [address] [place] [id number]
--- NOTE | 2019-01-21 14:37 | DS ---
[facility] Rehab Discharge Summary - [facility] Rehab Discharge Summary Admission Date: 01/07/19 Discharge Date: 01/22/19 - History Present History: Alcohol dependence, Opioid dependence (on/off) Additional Comments: Pt is a 58 y/o male admitted to rehab with a hx of alcohol dependence and sporadic use of heroin and discharging on 01/22/19. Pt has multiple past medical conditions(see below). Pt completed rehab safely and tolerated treatment well. Pt attended and participated actively in rehab activities. Pt accepted referral to aftercare for continuity of recovery. Pt has agreed to follow up with primary care for medical management. Pertinent Past History: PMHx: DVT PE GERD HTN CHRONIC BACK PAIN CHRONIC HIP PAIN PSORIASIS PSx-HX IVP FILTER-REMOVED PILOCYST REMOVED - Discharge Physical Exam Vital Signs: General:Alert o x 3;NAD Heent:Normocephalic, sophia, eomi,hearing grossly normal Cardiac:s1 s2,rrr Lungs:cta,javy., no wheeze, no sob Abdomen:soft,+bs,nt,nd Extremities:Full ROM,no edema,no cyanosis, Ambulates with steady gait. Vital Signs Temperature 97.9 F 01/21/19 07:05 Pulse Rate 89 01/21/19 10:00 Respiratory Rate 18 01/21/19 10:00 Blood Pressure 115/72 01/21/19 10:00 O2 Sat by Pulse Oximetry (%) Pertinent Admission Physical Exam Findings: labs reviewed. Copy with pt for follow up with primary care. Results unremarkable. - Treatment Discharge Condition: Discharge condition good Hospital Course: Rehabilitated safely,tolerated treatment well and accepted rehab. - Medication Discharge Medications: Ambulatory Orders Omeprazole 40 mg PO HS PRN 07/22/16 Folic Acid 1 mg PO DAILY 01/02/19 Apixaban [Eliquis] 2.5 mg PO BID #60 tablet 01/06/19 Nifedipine [Procardia Xl] 30 mg PO DAILY #30 tab.er.24 01/06/19 Gabapentin 300 mg PO BID@1000,1700 #60 capsule 01/21/19 Quetiapine Fumarate [Seroquel -] 50 mg PO HS #30 tablet 01/21/19 - Medication-Assisted Treatment (MAT) Medication-Assisted Treatment (MAT): No - Discharge Instructions Diet, activity, other medical instructions: Diet:Low Salt diet Activity: OOB,Ad Amy- Walking as tolerated Other medical instructions:Follow up with primary care provider, Dr. Lorenzo Bedolla @ [address] [place] [address], [place], [place] within 1 week after discharge. Follow up with [facility] aftercare with [facility] on [address], [place]. - Diagnosis (1) Diarrhea Current Visit: Yes Status: Acute Qualifiers: Diarrhea type: unspecified type Qualified Code(s): R19.7 - Diarrhea, unspecified (2) Alcohol dependence Current Visit: Yes Status: Chronic Qualifiers: Substance use status: uncomplicated Qualified Code(s): F10.20 - Alcohol dependence, uncomplicated (3) Heroin abuse Current Visit: Yes Status: Chronic (4) History of pulmonary embolism Current Visit: Yes Status: Chronic (5) Psoriasis Current Visit: Yes Status: Chronic (6) GERD (gastroesophageal reflux disease) Current Visit: Yes Status: Chronic Qualifiers: Esophagitis presence: without esophagitis Qualified Code(s): K21.9 - Gastro -esophageal reflux disease without esophagitis (7) Hypertension Current Visit: Yes Status: Chronic Qualifiers: Hypertension type: essential hypertension Qualified Code(s): I10 - Essential (primary) hypertension (8) Hip pain, chronic Current Visit: Yes Status: Chronic Qualifiers: Laterality: bilateral Qualified Code(s): M25.551 - Pain in right hip; M25.552 - Pain in left hip; G89.29 - Other chronic pain (9) Chronic back pain Current Visit: Yes Status: Chronic Qualifiers: Back pain location: low back pain Back pain laterality: bilateral Sciatica presence: without sciatica Qualified Code(s): M54.5 - Low back pain; G89.29 - Other chronic pain (10) History of DVT (deep vein thrombosis) Current Visit: Yes Status: Chronic - Follow-up Referral Minutes to complete discharge: 30 - AMA Did Patient Leave Against Medical Advice: No Additional Comments: Pt instructed to parts picker medications Nifedipine and eliquis posted on 01/06/19 at his home pharmacy[facility] after discharge. This racebook writer called the pharmacy and it was confirmed received at the pharmacy and awaits pt parts picker.
[2019-01-21] MEDS: QUEtiapine FUMARATE 50 MG TABLET PO SCH (21:09)
[2019-01-21] MEDS: THIAMINE HCL 100 MG TABLET (FP) PO SCH (21:09)
[2019-01-21] MEDS: LIDOCAINE PATCH REMOVAL MC SCH (21:11)
[2019-01-22] MEDS: METHOCARBAMOL 500 MG TABLET PO PRN (05:54)
[2019-01-22 06:53] VITALS: BP 122/86; PULSE 103; TEMP 98.2
[2019-01-22] MEDS: PRENATAL VITAMINS W/ FOLIC ACID TABLET (FP) PO SCH (10:01)
[2019-01-22] MEDS: ARTIFICIAL TEARS (POLYVINYL ALCOHOL) OPTH DROPS OU SCH (10:01)
[2019-01-22] MEDS: NIFEdipine E.R. 30 MG TABLET (FP) PO SCH (10:01)
[2019-01-22] MEDS: LIDOCAINE 5% TOPICAL PATCH TP SCH (10:01)
[2019-01-22] MEDS: APIXABAN 2.5 MG TABLET PO SCH (10:01)
[2019-01-22] MEDS: PANTOPRAZOLE 40 MG TABLET (FP) PO SCH (10:02)
[2019-01-22] MEDS: GABAPENTIN 300 MG CAPSULE (FP) PO SCH (10:02)
--- NOTE | 2019-01-22 11:08 | PN ---
[facility] Progress Note Note: Pt discharged this morning as scheduled. alert o x 3. NAD. Vital Signs - 24 hr 01/22/19 01/22/19 01/22/19 00:30 03:30 06:52 Temperature 98.2 F Pulse Rate 103 H Respiratory 18 18 18 Rate Blood Pressure 122/86
== END 2019-01-22 10:30 | disposition home or self-care (01) | DRG 772 ==
LOC: YASAS 15:43 → Y5N 15:44
PROVIDERS: ADMIT Neuromusculoskeletal Medicine & OMM; ATTEND Neuromusculoskeletal Medicine & OMM
PROC: HZ42ZZZ Group Counseling for Substance Abuse Treatment, Cognitive-Behavioral (ICD-10-PCS; principal; 2019-01-07)
DX: F10.20 Alcohol dependence, uncomplicated (principal); F11.10 Opioid abuse, uncomplicated; F41.9 Anxiety disorder, unspecified; F19.282 Other psychoactive substance dependence with psychoactive substance-induced sleep disorder; I10 Essential (primary) hypertension; R19.7 Diarrhea, unspecified; H40.9 Unspecified glaucoma; K21.9 Gastro-esophageal reflux disease without esophagitis; M54.5 Low back pain; M25.551 Pain in right hip; M25.552 Pain in left hip; G89.29 Other chronic pain; G47.00 Insomnia, unspecified; Z86.711 Personal history of pulmonary embolism; Z86.718 Personal history of other venous thrombosis and embolism; Z79.01 Long term (current) use of anticoagulants; Z95.828 Presence of other vascular implants and grafts
CPT/HCPCS: 90732; G0009; Q0162

== ENCOUNTER 2019-03-29 10:57 | Inpatient (IN) | payer OTHER ==
[2019-03-29 11:55] VITALS: BMI 26.6
--- NOTE | 2019-03-29 13:55 | HP ---
CIWA Score Nausea/Vomitin-Mild Nausea/No Vomiting Muscle Tremors: 4-Moderate,w/Arms Extend Anxiety: 2 Agitation: 1-Slight > Activity Paroxysmal Sweats: 3 Orientation: 1-Uncertain about Date Tacttile Disturbances: 0-None Auditory Disturbances: 0-None Visual Disturbances: 0-None Headache: 0-None Present CIWA-Ar Total Score: 12 - Admission Criteria OASAS Guidelines: Admission for Medically Managed Detox: Requires at least one of the followin. CIWA greater than 12 2. Seizures within the past 24 hours 3. Delirium tremens within the past 24 hours 4. Hallucinations within the past 24 hours 5. Acute intervention needed for co occurring medical disorder 6. Acute intervention needed for co occurring psychiatric disorder 7. Severe withdrawal that cannot be handled at a lower level of care (continued vomiting, continued diarrhea, abnormal vital signs) requiring intravenous medication and/or fluids 8. Admitting History and Physical - Smoking History Smoking history: Never smoked Have you smoked in the past 12 months: No Aproximately how many cigarettes per day: 0 - Alcohol/Substance Use Hx Alcohol Use: Yes Admission ROS [facility] Allergies/Adverse Reactions: Allergies Allergy/AdvReac Type Severity Reaction Status Date / Time No Known Allergies Allergy Verified 03/29/19 11:45 History of Present Illness: 58 y.o. M PMH pulmonary embolism 5 yrs ago, HTN, arthritis presenting for alcohol detox. Presenting from [facility] for back pain. At the hospital they gave him morphine. U-tox + for opiates, methamphetamines, oxy-- pt had been prescribed oxy last picked up 11/12/18, says he hasnt taken any in the last few weeks, denies opiate/ heroin use, but received the morphine in [place] ED. EtOH: daily use, 10 shots of bourbon per day. Last drink this morning, had 1/2 pint vodka. Has been drinking since age 16. Passes out frequently. says "I drink to pass out". Never had a seizure from not drinking. Longest sober period 9 years, relapsed in 2009. PSH: 4 screws in L shoulder, IVC filter s/p removal Social hx: lives in apartment by himself. Not currently working, on SSI. All: NKDA/NKFA Meds: eliquis, nifedipine Exam Limitations: No Limitations - Ebola screening Have you traveled outside of the country in the last 21 days: No (N) Have you had contact with anyone from an Ebola affected area: No Do you have a fever: No - Review of Systems Constitutional: Chills, Diaphoresis, Loss of Appetite EENT: reports: No Symptoms Reported Respiratory: reports: No Symptoms reported Cardiac: reports: No Symptoms Reported GI: reports: Nausea, Abdominal cramping Musculoskeletal: reports: Back Pain Integumentary: reports: No Symptoms Reported Neuro: reports: Headache, Tremors Endocrine: reports: No Symptoms Reported Hematology: reports: No Symptoms Reported Psychiatric: reports: Mood/Affect Appropiate, Disorientated Patient History - Patient Medical History Hx Anemia: No Hx Asthma: No Hx Chronic Obstructive Pulmonary Disease (COPD): No Hx Cancer: No Hx Cardiac Disorders: Yes Hx Congestive Heart Failure: No Hx Hypertension: Yes Hx Hypercholesterolemia: No Hx Pacemaker: No HX Cerebrovascular Accident: No Hx Seizures: No Hx Dementia: No Hx Diabetes: No Hx Gastrointestinal Disorders: No Hx Liver Disease: No Hx Genitourinary Disorders: No Hx Sexually Transmitted Disorders: No Hx Renal Disease (ESRD): No Hx Thyroid Disease: No Hx Human Immunodeficiency Virus (HIV): No Hx Hepatitis C: No Hx Depression: No Hx Suicide Attempt: No Hx Bipolar Disorder: No Hx Schizophrenia: No Other Medical History: PE - Patient Surgical History Past Surgical History: Yes Hx Neurologic Surgery: No Hx Cataract Extraction: No Hx Cardiac Surgery: No Hx Lung Surgery: No Hx Breast Surgery: No Hx Breast Biopsy: No Hx Abdominal Surgery: No Hx Appendectomy: No Hx Cholecystectomy: No Hx Genitourinary Surgery: No Hx Orthopedic Surgery: Yes (shoulder rotator cuff repair AGE 46 left) Other Surgical History: IVC FILTER removed 2013/ PILOCYST REMOVED 2005 Anesthesia Reaction: No - PPD History Date: 07/24/16 Results: 0 mm - Smoking Cessation Smoking history: Never smoked Have you smoked in the past 12 months: No Aproximately how many cigarettes per day: 0 Cigars Per Day: 0 Hx Chewing Tobacco Use: No - Substances abused Alcohol Substance route: Oral Frequency: Daily Amount used: 5 Pints of bourbon whiskey Age of first use: 16 Date of last use: 03/29/19 Heroin Substance route: Inhalation Frequency: 3-6 times per week Amount used: 2 BAGS (it's off an on, not everyday) Age of first use: 16 (2-3 times per week) Date of last use: 12/12/18 (urine tox negative for opiates) Admission Physical Exam [facility] - Vital Signs Vital Signs: Vital Signs - 24 hr 03/29/19 11:45 Temperature 99.0 F Pulse Rate 103 H Respiratory 18 Rate Blood Pressure 134/93 - Physical General Appearance: Yes: Tremorous, Irritable, Anxious HEENTM: Yes: Hearing grossly Normal, Normocephalic, Normal Voice, GURPREET Respiratory: Yes: Lungs Clear, Normal Breath Sounds, No Respiratory Distress, No Accessory Muscle Use Neck: Yes: Within Normal Limits Cardiology: Yes: Regular Rhythm, S1, S2, Tachycardia Abdominal: Yes: Normal Bowel Sounds, Non Tender, Soft Back: Yes: Normal Inspection Musculoskeletal: Yes: Within Normal Limits Extremities: Yes: Within Normal Limits, Normal Inspection 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
[2019-03-29] MEDS ORDERED: ACETAMINOPHEN 325 MG TABLET (FP) PO PRN (14:32)
[2019-03-29] MEDS ORDERED: MENTHOL/PHENOL 1 EACH UD MM PRN (14:32)
[2019-03-29] MEDS ORDERED: MAGNESIUM CITRATE 300 ML BOTTLE PO PRN (14:32)
[2019-03-29] MEDS ORDERED: MAGNESIUM HYDROX 2400MG/30ML ORAL SUSPENSION 30 ML CUP PO PRN (14:32)
[2019-03-29] MEDS ORDERED: MAG HYDROX/AL HYDROX/SIMETH 30 ML UNIT-DOSE CUP PO PRN (14:32)
[2019-03-29] MEDS ORDERED: IBUPROFEN 400 MG TABLET (FP) PO PRN (14:32)
--- NOTE | 2019-03-29 14:51 | PN ---
Teaching Attending Note Name of Resident: Albania Crane ATTENDING PHYSICIAN STATEMENT I saw and evaluated the patient. I reviewed the resident's note and discussed the case with the resident. I agree with the resident's findings and plan as documented. SUBJECTIVE: 58 y.o. male requesting detox from etoh use , reports 10 small bottles/day x 6 weeks, denies seizures, + blackouts and tremors if not drinking alcohol, starts drinking in the mornings . denies opiate use despite + utox opiates and oxy PMHx:, DVT, PE, GERD, HTN, CHRONIC BACK PAIN, CHRONIC HIP PAIN, PSORIASIS PSx-HX IVP FILTER-REMOVED, PILOCYST REMOVED , left shoulder surgery OBJECTIVE: wnwd, CHADD 0.195 , mild UE tremors, anxious, agitated . Vital Signs - 24 hr 03/29/19 11:45 Temperature 99.0 F Pulse Rate 103 H Respiratory 18 Rate Blood Pressure 134/93 ASSESSMENT AND PLAN: Alcohol use disorder - Librium detox
[2019-03-29] MEDS: chlordiazePOXIDE HCL 10 MG CAPSULE PO PRN ×2 (15:16→17:01)
[2019-03-29] MEDS: hydrOXYzine PAMOATE 25 MG CAPSULE (FP) PO PRN (17:01)
[2019-03-29] MEDS: METHOCARBAMOL 500 MG TABLET PO PRN (18:40)
[2019-03-29] MEDS: THIAMINE HCL 100 MG TABLET (FP) PO SCH (22:08)
[2019-03-29] MEDS: chlordiazePOXIDE HCL 25 MG CAPSULE PO SCH (22:08)
[2019-03-29] MEDS: MELATONIN 5 MG TABLETS PO PRN (22:09)
[2019-03-30] MEDS: chlordiazePOXIDE HCL 10 MG CAPSULE PO PRN (01:03)
[2019-03-30] MEDS: METHOCARBAMOL 500 MG TABLET PO PRN ×4 (02:50→22:41)
[2019-03-30] MEDS: hydrOXYzine PAMOATE 25 MG CAPSULE (FP) PO PRN (02:50)
[2019-03-30] MEDS: chlordiazePOXIDE HCL 25 MG CAPSULE PO SCH ×4 (05:15→22:39)
[2019-03-30] MEDS ORDERED: chlordiazePOXIDE HCL 25 MG CAPSULE PO PRN (09:07)
[2019-03-30] MEDS: ONDANSETRON *ODT* 4 MG TABLET SL PRN (09:17)
[2019-03-30] MEDS ORDERED: chlordiazePOXIDE HCL 25 MG CAPSULE PO SCH (10:00)
[2019-03-30] MEDS: PRENATAL VITAMINS W/ FOLIC ACID TABLET (FP) PO SCH (11:13)
[2019-03-30] MEDS ORDERED: FLU VACCINE QUAD 60 MCG/0.5 ML (MDV 19-20) IM ONE (12:00)
--- NOTE | 2019-03-30 12:14 | PN ---
S CIWA - CIWA Score Nausea/Vomitin-Mild Nausea/No Vomiting Muscle Tremors: 4-Moderate,w/Arms Extend Anxiety: 4-Mod. Anxious/Guarded Agitation: 4-Moderately Restless Paroxysmal Sweats: 4-Forehead w/Sweat Beads Orientation: 0-Oriented Tacttile Disturbances: 0-None Auditory Disturbances: 0-None Visual Disturbances: 0-None Headache: 0-None Present CIWA-Ar Total Score: 17 [facility] Progress Note (SOAP) Subjective: sweats shakes nausea interrupted sleep insomnia restless body aches chills Objective: 03/30/19 12:13 Vital Signs Temperature 97.3 F L 03/30/19 09:44 Pulse Rate 123 H 03/30/19 09:44 Respiratory Rate 20 03/30/19 09:44 Blood Pressure 131/53 L 03/30/19 09:44 O2 Sat by Pulse Oximetry (%) labs pending aaox3 ambulating no acute distress Assessment: 03/30/19 12:13 withdrawals noted will d/c current libirum order and changed to severe librium detox regimen. Plan: continue with new librium order roboxin prn increase fluids zofran sl prn trazadone 50mg qhs
[2019-03-30] MEDS: NIFEdipine E.R. 30 MG TABLET (FP) PO SCH (13:16)
[2019-03-30] MEDS: BISMUTH SUBSALICYLATE 262 MG/15 ML BTL PO PRN ×2 (16:28→21:07)
--- NOTE | 2019-03-30 17:00 | CONSULT ---
[facility] Psychiatric Consult - Data Date of interview: 03/30/19 Admission source: [facility] Identifying data: Readmission to [facility] for his 58 y/o male self- referred for detoxification (СВЕТЛАНА issues : alcohol, heroin). Interviewd at [address] [place] [address]. Patient is single without children, domiciled, unemployed and supported on Public Assistance. Substance Abuse History: Discussed with patient. Details in current [facility] report as follows : Smoking history: Never smoked. Have you smoked in the past 12 months: No. Aproximately how many cigarettes per day: 0. Cigars Per Day: 0. Hx Chewing Tobacco Use: No. - Substances abused. Alcohol. Substance route : Oral. Frequency: Daily. Amount used: 5 Pints of bourbon whiskey. Age of first use: 16. Date of last use: 03/29/19. Heroin. Substance route: Inhalation. Frequency: 3-6 times per week. Amount used: 2 BAGS (it's off an on, not everyday). Age of first use: 16 (2-3 times per week). Date of last use : 12/12/18 (urine tox negative for opiates) Medical History: Good general health reported by the patient. Noted history of IVP filter/pilocyst removed in 2005, DVT and GERD. Psychiatric History: Patient denies history of psychiatric hospitalizations, suicide attempts or OPD care. Reports chronic insomnia. Physical/Sexual Abuse/Trauma History: Patient denies. Additional Comment: Urine drug screen results: MET-Methamphetamine, MOP-Opiates , OXY-Oxycodone. Noted. Mental Status Exam - Mental Status Exam Alert and Oriented to: Time, Place, Person Cognitive Function: Good Patient Appearance: Well Groomed Mood: Hopeful Affect: Appropriate, Normal Range Patient Behavior: Appropriate, Cooperative Speech Pattern: Clear Voice Loudness: Normal Thought Process: Intact, Goal Oriented Thought Disorder: Not Present Hallucinations: Denies Suicidal Ideation: Denies Homicidal Ideation: Denies Insight/Judgement: Fair Sleep: Poorly, Difficulty falling asleep Appetite: Good Muscle strength/Tone: Normal Gait/Station: Normal Psychiatric Findings - Problem List ([place] 1, 2,3) (1) Alcohol dependence with uncomplicated withdrawal Current Visit: Yes Status: Acute (2) Heroin abuse Current Visit: Yes Status: Chronic (3) Insomnia Current Visit: Yes Status: Chronic - Initial Treatment Plan Initial Treatment Plan: Records ([facility]) revisited. Patient is already known to this junior copywriter from a previous admission to this service. Psychoeducation. Sleep hygiene. Detoxification. Support. AA/NA meetings. Insomnia is addressed with a low dose (50 mg po hs) of seroquel at patient's specific request. Mr Hennessy is made aware of this off-label use of the drug. In addition, he has been informed of the side effects/benefits of seroquel. Risk of sedation/falls and metabolic syndrome are brought to patient's attention. He gave verbal consent to MD for this plan of care. Observation.
[2019-03-30] MEDS: ACETAMINOPHEN 325 MG TABLET (FP) PO PRN (17:35)
[2019-03-30] MEDS ORDERED: traZODone HCL 50 MG TABLET (FP) PO SCH (22:00)
[2019-03-30] MEDS: THIAMINE HCL 100 MG TABLET (FP) PO SCH (22:39)
[2019-03-30] MEDS: QUEtiapine FUMARATE 50 MG TABLET PO SCH (22:40)
[2019-03-30] MEDS: APIXABAN 2.5 MG TABLET PO SCH (22:40)
[2019-03-31] MEDS ORDERED: chlordiazePOXIDE 5 MG CAPSULE PO SCH (05:00)
[2019-03-31] MEDS: chlordiazePOXIDE HCL 25 MG CAPSULE PO SCH ×4 (06:13→22:43)
[2019-03-31] MEDS: METHOCARBAMOL 500 MG TABLET PO PRN ×3 (06:15→20:03)
[2019-03-31] MEDS ORDERED: LOPERAMIDE HCL 2 MG CAPSULE PO ONE (10:43)
[2019-03-31] MEDS: hydrOXYzine PAMOATE 25 MG CAPSULE (FP) PO PRN ×3 (11:08→22:44)
[2019-03-31] MEDS: PRENATAL VITAMINS W/ FOLIC ACID TABLET (FP) PO SCH (11:08)
[2019-03-31] MEDS: NIFEdipine E.R. 30 MG TABLET (FP) PO SCH (11:08)
[2019-03-31] MEDS: ACETAMINOPHEN 325 MG TABLET (FP) PO PRN (13:09)
[2019-03-31] MEDS: PANTOPRAZOLE 40 MG TABLET (FP) PO SCH (13:10)
[2019-03-31] MEDS: LIDOCAINE 5% TOPICAL PATCH TP SCH (13:11)
[2019-03-31] MEDS ORDERED: LOPERAMIDE HCL 2 MG CAPSULE PO PRN (14:00)
--- NOTE | 2019-03-31 15:25 | PN ---
[facility] CIWA - CIWA Score Nausea/Vomitin-Mild Nausea/No Vomiting Muscle Tremors: 4-Moderate,w/Arms Extend Anxiety: 4-Mod. Anxious/Guarded Agitation: 3 Paroxysmal Sweats: 3 Orientation: 0-Oriented Tacttile Disturbances: 0-None Auditory Disturbances: 0-None Visual Disturbances: 0-None Headache: 0-None Present CIWA-Ar Total Score: 15 S Progress Note (SOAP) Subjective: Back pain (stated has arthritis in back and uses cane at home), requesting cane for mobility, diarrhea (pepto bismol not working), sweating, chills, heartburn from GERD (takes omeprazole 40mg at home) Objective: 03/31/19 15:21 Last Vital Signs Temp Pulse Resp BP Pulse Ox 99.5 F 116 H 20 106/77 03/31/19 14:12 03/31/19 14:12 03/31/19 14:12 03/31/19 14:12 Tachycardia noted No admission labs available for review Assessment: 03/31/19 15:22 Withdrawal sxs Noted with tachycardia Plan: Continue detox Encouraged PO water intake Imodium ordered prn for diarrhea with first dose of 4mg, pepto bismol discontinued as it is ineffective) Lidocaine patch daily plus cane for easier ambulation GERD: protonix 40mg PO daily ordered Tachycardia: most likely r/t anxiety and withdrawal, consider obtaining EKG if tachycardia continues, monitor VS
[2019-03-31] MEDS: APIXABAN 2.5 MG TABLET PO SCH ×2 (18:54→22:43)
[2019-03-31] MEDS: QUEtiapine FUMARATE 50 MG TABLET PO SCH (22:43)
[2019-03-31] MEDS: THIAMINE HCL 100 MG TABLET (FP) PO SCH (22:43)
[2019-03-31] MEDS: LIDOCAINE PATCH REMOVAL MC SCH (22:44)
[2019-04-01] MEDS ORDERED: chlordiazePOXIDE HCL 10 MG CAPSULE PO PRN
[2019-04-01] MEDS: ACETAMINOPHEN 325 MG TABLET (FP) PO PRN ×2 (01:06→20:03)
[2019-04-01] MEDS ORDERED: chlordiazePOXIDE HCL 10 MG CAPSULE PO SCH (05:00)
[2019-04-01] MEDS: chlordiazePOXIDE HCL 25 MG CAPSULE PO SCH ×4 (05:53→22:20)
[2019-04-01] MEDS: METHOCARBAMOL 500 MG TABLET PO PRN (05:55)
[2019-04-01] MEDS: APIXABAN 2.5 MG TABLET PO SCH ×2 (10:35→22:20)
[2019-04-01] MEDS: PRENATAL VITAMINS W/ FOLIC ACID TABLET (FP) PO SCH (10:35)
[2019-04-01] MEDS: METHOCARBAMOL 750 MG TABLET PO SCH ×4 (10:35→22:20)
[2019-04-01] MEDS: PANTOPRAZOLE 40 MG TABLET (FP) PO SCH (10:35)
[2019-04-01] MEDS: NIFEdipine E.R. 30 MG TABLET (FP) PO SCH (10:35)
[2019-04-01] MEDS: LIDOCAINE 5% TOPICAL PATCH TP SCH (10:40)
--- NOTE | 2019-04-01 12:48 | PN ---
S CIWA - CIWA Score Nausea/Vomitin-Mild Nausea/No Vomiting Muscle Tremors: 2 Anxiety: 2 Agitation: 2 Paroxysmal Sweats: No Perspiration Orientation: 0-Oriented Tacttile Disturbances: 1-Very Mild Itch/Numbness Auditory Disturbances: 0-None Visual Disturbances: 0-None Headache: 2-Mild CIWA-Ar Total Score: 10 [facility] Progress Note (SOAP) Subjective: alert,irritable,anxious,interrupted sleep,pain in the body Objective: 04/01/19 12:47 Vital Signs Temperature 98.6 F 04/01/19 09:46 Pulse Rate 112 H 04/01/19 09:46 Respiratory Rate 18 04/01/19 09:46 Blood Pressure 110/78 04/01/19 09:46 O2 Sat by Pulse Oximetry (%) Assessment: 04/01/19 12:48 withdrawal symptom Plan: continue detox librium regimen,cbc,cmp,rpr in am
[2019-04-01] MEDS: QUEtiapine FUMARATE 50 MG TABLET PO SCH (22:20)
[2019-04-01] MEDS: THIAMINE HCL 100 MG TABLET (FP) PO SCH (22:20)
[2019-04-01] MEDS: LIDOCAINE PATCH REMOVAL MC SCH (22:34)
[2019-04-02] MEDS ORDERED: chlordiazePOXIDE HCL 10 MG CAPSULE PO PRN
[2019-04-02] MEDS ORDERED: chlordiazePOXIDE HCL 10 MG CAPSULE PO ONE (05:00)
[2019-04-02] MEDS: hydrOXYzine PAMOATE 25 MG CAPSULE (FP) PO PRN ×2 (05:26→22:38)
[2019-04-02] MEDS: chlordiazePOXIDE HCL 10 MG CAPSULE PO SCH ×4 (05:26→22:45)
[2019-04-02] MEDS: ACETAMINOPHEN 325 MG TABLET (FP) PO PRN ×2 (05:27→20:23)
[2019-04-02] MEDS ORDERED: cloNIDine HCL 0.1 MG TABLET PO ONE (08:38)
[2019-04-02 09:33] LABS: HEMATOCRIT 36.2 % (35.4-49); HEMOGLOBIN 12.3 GM/dL (11.7-16.9); MCH 34.9 pg (25.7-33.7); MCHC 33.9 g/dl (32.0-35.9); MEAN CELL VOLUME 102.9 fl (80-96); MEAN PLT VOLUME 9.6 fl (7.5-11.1); PLATELET COUNT 84 K/MM3 (134-434); RBC 3.52 M/mm3 (4.00-5.60); RDW 15.4 % (11.9-15.9); WHITE BLOOD COUNT 4.7 K/mm3 (4.0-10.0)
[2019-04-02 10:11] LABS: ALBUMIN 3.1 g/dl (3.4-5.0); BILIRUBIN,TOTAL 0.6 mg/dL (0.2-1); BLOOD UREA NITROGEN 14.4 mg/dL (7-18); CALCIUM 8.8 mg/dL (8.5-10.1); CREATININE 1.4 mg/dL (0.55-1.3); POTASSIUM 3.9 mmol/L (3.5-5.1); TOT PROT 6.7 g/dl (6.4-8.2)
[2019-04-02] MEDS: METHOCARBAMOL 750 MG TABLET PO SCH ×4 (10:25→21:04)
[2019-04-02] MEDS: PANTOPRAZOLE 40 MG TABLET (FP) PO SCH (10:25)
[2019-04-02] MEDS: PRENATAL VITAMINS W/ FOLIC ACID TABLET (FP) PO SCH (10:25)
[2019-04-02] MEDS: APIXABAN 2.5 MG TABLET PO SCH ×2 (10:25→21:05)
[2019-04-02] MEDS: NIFEdipine E.R. 30 MG TABLET (FP) PO SCH (10:25)
[2019-04-02] MEDS: LIDOCAINE 5% TOPICAL PATCH TP SCH (10:26)
--- NOTE | 2019-04-02 14:02 | PN ---
S CIWA - CIWA Score Nausea/Vomitin-No Nausea/No Vomiting Muscle Tremors: 2 Anxiety: 1-Mildly Anxious Agitation: 1-Slight > Activity Paroxysmal Sweats: 2 Orientation: 0-Oriented Tacttile Disturbances: 0-None Auditory Disturbances: 0-None Visual Disturbances: 0-None Headache: 0-None Present CIWA-Ar Total Score: 6 [facility] Progress Note (SOAP) Subjective: agitation sweats interrupted sleep Objective: 04/02/19 14:00 Vital Signs Temperature 97.5 F L 04/02/19 09:35 Pulse Rate 100 H 04/02/19 09:36 Respiratory Rate 20 04/02/19 09:36 Blood Pressure 139/106 H 04/02/19 09:36 O2 Sat by Pulse Oximetry (%) Laboratory Tests 04/02/19 04/02/19 04/02/19 07:20 07:20 07:20 WBC 4.7 RBC 3.52 L Hgb 12.3 Hct 36.2 MCV 102.9 H MCH 34.9 H MCHC 33.9 RDW 15.4 D Plt Count 84 L D MPV 9.6 D Sodium 137 Potassium 3.9 Chloride 105 Carbon Dioxide 23 Anion Gap 9 BUN 14.4 Creatinine 1.4 H Est GFR (CKD-EPI)AfAm 62.84 Est GFR (CKD-EPI)NonAf 54.22 Random Glucose 132 H Calcium 8.8 Total Bilirubin 0.6 AST 32 ALT 16 Alkaline Phosphatase 142 H Total Protein 6.7 Albumin 3.1 L RPR Titer Nonreactive labs noted hypertension noted; clonidine 0.1 x one aaox3 ambulating no acute distress Assessment: 04/02/19 14:01 withdrawals Plan: continue detox increase fluids
[2019-04-02] MEDS: THIAMINE HCL 100 MG TABLET (FP) PO SCH (22:37)
[2019-04-02] MEDS: LIDOCAINE PATCH REMOVAL MC SCH (22:38)
[2019-04-02] MEDS: QUEtiapine FUMARATE 50 MG TABLET PO SCH (22:38)
[2019-04-03] MEDS: chlordiazePOXIDE HCL 10 MG CAPSULE PO SCH ×2 (06:05→17:38)
[2019-04-03] MEDS: ACETAMINOPHEN 325 MG TABLET (FP) PO PRN ×2 (06:06→18:39)
[2019-04-03] MEDS: NIFEdipine E.R. 30 MG TABLET (FP) PO SCH (09:32)
[2019-04-03] MEDS: LIDOCAINE 5% TOPICAL PATCH TP SCH (09:32)
[2019-04-03] MEDS: METHOCARBAMOL 750 MG TABLET PO SCH ×4 (09:32→22:27)
[2019-04-03] MEDS: PANTOPRAZOLE 40 MG TABLET (FP) PO SCH (09:32)
[2019-04-03] MEDS: PRENATAL VITAMINS W/ FOLIC ACID TABLET (FP) PO SCH (09:32)
[2019-04-03] MEDS: APIXABAN 2.5 MG TABLET PO SCH ×2 (09:32→22:27)
--- NOTE | 2019-04-03 11:16 | PN ---
S CIWA - CIWA Score Nausea/Vomitin-Mild Nausea/No Vomiting Muscle Tremors: 1-None Visible, but [place] Anxiety: 2 Agitation: 2 Paroxysmal Sweats: No Perspiration Orientation: 0-Oriented Tacttile Disturbances: 0-None Auditory Disturbances: 0-None Visual Disturbances: 0-None Headache: 1-Very Mild CIWA-Ar Total Score: 7 S Progress Note (SOAP) Subjective: alert,irritable,anxious,interrupted sleep,back pain Objective: 04/03/19 11:18 Vital Signs Temperature 98.2 F 04/03/19 09:33 Pulse Rate 114 H 04/03/19 09:33 Respiratory Rate 18 04/03/19 09:33 Blood Pressure 127/99 04/03/19 09:33 O2 Sat by Pulse Oximetry (%) Assessment: 04/03/19 11:19 withdrawal symptom Plan: continue detox librium regimen,discharge in am
[2019-04-03] MEDS: ONDANSETRON *ODT* 4 MG TABLET SL PRN (20:54)
[2019-04-03] MEDS: hydrOXYzine PAMOATE 25 MG CAPSULE (FP) PO PRN (22:26)
[2019-04-03] MEDS: MELATONIN 5 MG TABLETS PO PRN (22:27)
[2019-04-03] MEDS: THIAMINE HCL 100 MG TABLET (FP) PO SCH (22:27)
[2019-04-03] MEDS: LIDOCAINE PATCH REMOVAL MC SCH (22:27)
[2019-04-03] MEDS: QUEtiapine FUMARATE 50 MG TABLET PO SCH (22:27)
[2019-04-04] MEDS ORDERED: chlordiazePOXIDE HCL 10 MG CAPSULE PO ONE (05:00)
[2019-04-04] MEDS: ACETAMINOPHEN 325 MG TABLET (FP) PO PRN (07:03)
--- NOTE | 2019-04-04 08:52 | DS ---
[facility] Detox Discharge Summary Admission Date: 03/29/19 Discharge Date: 04/04/19 - History Present History: Alcohol Dependence - Physical Exam Results Vital Signs: Vital Signs Temperature 97.7 F 04/03/19 21:06 Pulse Rate 108 H 04/03/19 21:06 Respiratory Rate 18 04/04/19 03:30 Blood Pressure 131/88 04/03/19 21:06 O2 Sat by Pulse Oximetry (%) Pertinent Admission Physical Exam Findings: pt arrived in withdrawals Vital Signs Temperature 97.7 F 04/03/19 21:06 Pulse Rate 108 H 04/03/19 21:06 Respiratory Rate 18 04/04/19 03:30 Blood Pressure 131/88 04/03/19 21:06 O2 Sat by Pulse Oximetry (%) Laboratory Tests 04/02/19 04/02/19 04/02/19 07:20 07:20 07:20 WBC 4.7 RBC 3.52 L Hgb 12.3 Hct 36.2 MCV 102.9 H MCH 34.9 H MCHC 33.9 RDW 15.4 D Plt Count 84 L D MPV 9.6 D Sodium 137 Potassium 3.9 Chloride 105 Carbon Dioxide 23 Anion Gap 9 BUN 14.4 Creatinine 1.4 H Est GFR (CKD-EPI)AfAm 62.84 Est GFR (CKD-EPI)NonAf 54.22 Random Glucose 132 H Calcium 8.8 Total Bilirubin 0.6 AST 32 ALT 16 Alkaline Phosphatase 142 H Total Protein 6.7 Albumin 3.1 L RPR Titer Nonreactive today pt is aaox3 ambulating no acute distress no s/s of withdrawals - Treatment Hospital Course: Detox Protocol Followed, Detoxed Safely, Responded well, Discharged Condition Good, Rehab Referral Accepted Patient has Accepted a Rehab Referral to: pt referred to [facility] inpatient rehab - Medication Discharge Medications: Ambulatory Orders Omeprazole 40 mg PO HS PRN 07/22/16 Folic Acid 1 mg PO DAILY 01/02/19 Apixaban [Eliquis] 2.5 mg PO BID #60 tablet 01/06/19 Nifedipine [Procardia Xl] 30 mg PO DAILY #30 tab.er.24 01/06/19 Gabapentin 300 mg PO BID@1000,1700 03/29/19 - Diagnosis (1) Alcohol dependence with uncomplicated withdrawal Current Visit: Yes Status: Chronic (2) Heroin abuse Current Visit: Yes Status: Chronic (3) Insomnia Current Visit: Yes Status: Chronic (4) Abrasion, nose w/o infection Current Visit: No Status: Acute (5) Azotemia Current Visit: No Status: Acute (6) Diarrhea Current Visit: No Status: Acute Qualifiers: Diarrhea type: unspecified type Qualified Code(s): R19.7 - Diarrhea, unspecified (7) Subconjunctival hemorrhage Current Visit: No Status: Acute (8) Substance-induced sleep disorder Current Visit: No Status: Acute (9) Syncope Current Visit: No Status: Acute (10) Anxiety disorder Current Visit: No Status: Chronic (11) Chronic back pain Current Visit: Yes Status: Chronic Qualifiers: Back pain location: low back pain Back pain laterality: bilateral Sciatica presence: without sciatica Qualified Code(s): M54.5 - Low back pain; G89.29 - Other chronic pain (12) GERD (gastroesophageal reflux disease) Current Visit: Yes Status: Chronic Qualifiers: Esophagitis presence: without esophagitis Qualified Code(s): K21.9 - Gastro -esophageal reflux disease without esophagitis (13) Hip pain, chronic Current Visit: No Status: Chronic Qualifiers: Laterality: bilateral Qualified Code(s): M25.551 - Pain in right hip; M25.552 - Pain in left hip; G89.29 - Other chronic pain (14) History of DVT (deep vein thrombosis) Current Visit: No Status: Chronic (15) History of pulmonary embolism Current Visit: No Status: Chronic (16) Hypertension Current Visit: No Status: Chronic Qualifiers: Hypertension type: essential hypertension Qualified Code(s): I10 - Essential (primary) hypertension - AMA Did Patient Leave Against Medical Advice: No
[2019-04-04 09:47] VITALS: BP 138/99; PULSE 101; TEMP 96.3
[2019-04-04] MEDS: NIFEdipine E.R. 30 MG TABLET (FP) PO SCH (10:08)
[2019-04-04] MEDS: PANTOPRAZOLE 40 MG TABLET (FP) PO SCH (10:08)
[2019-04-04] MEDS: PRENATAL VITAMINS W/ FOLIC ACID TABLET (FP) PO SCH (10:09)
[2019-04-04] MEDS: APIXABAN 2.5 MG TABLET PO SCH (10:09)
[2019-04-04] MEDS: METHOCARBAMOL 750 MG TABLET PO SCH (10:10)
[2019-04-04] MEDS: LIDOCAINE 5% TOPICAL PATCH TP SCH (10:12)
== END 2019-04-04 10:54 | disposition home or self-care (01) | DRG 773 ==
LOC: YASAS 10:57 → Y6N 14:40
PROVIDERS: ADMIT Allergy & Immunology; ATTEND Allergy & Immunology
PROC: HZ2ZZZZ Detoxification Services for Substance Abuse Treatment (ICD-10-PCS; principal; 2019-03-29)
DX: F10.230 Alcohol dependence with withdrawal, uncomplicated (principal); F11.10 Opioid abuse, uncomplicated; F19.282 Other psychoactive substance dependence with psychoactive substance-induced sleep disorder; F41.9 Anxiety disorder, unspecified; I10 Essential (primary) hypertension; G47.00 Insomnia, unspecified; R79.89 Other specified abnormal findings of blood chemistry; R19.7 Diarrhea, unspecified; M54.5 Low back pain; M25.551 Pain in right hip; M25.552 Pain in left hip; G89.29 Other chronic pain; K21.9 Gastro-esophageal reflux disease without esophagitis; R00.0 Tachycardia, unspecified; Z86.718 Personal history of other venous thrombosis and embolism; Z86.711 Personal history of pulmonary embolism; Z95.828 Presence of other vascular implants and grafts
CPT/HCPCS: 36415; 80053; 85027; 86593; J0735; Q0162; Q2036